=== PATIENT | male | born 1970 ===

== ENCOUNTER 2020-06-10 05:02 | Emergency (ER) | payer OTHER, SELFPAY ==
[2020-06-10 08:37] LABS: Glucose Urine UA NEG (NEG); Leukocyte Esterase Urine NEG (NEG); Nitrite Urine NEG (NEG); PH 5.5 (5.0-8.0); Specific Gravity - Urine >= 1.030 (1.005-1.025); Urine Blood 3+ (NEG); Urine Ketones 5 MG/DL (NEG); Urine Protein NEG (NEG-TRACE)
[2020-06-10 08:43] LABS: Appearance Urine CLOUDY; Color Urine DARK YELLOW
[2020-06-10 08:50] LABS: RBC Urine 50-75 /HPF (0); Squamous Epithelial Cell Urine TRACE /LPF; WBC Urine 0 /HPF (0-4)
[2020-06-10 08:51] LABS: Amorphous Sediment Urine 2+ /LPF; Mucus Urine 2+ /LPF
[2020-06-10 09:27] VITALS: BP 114/69; PULSE 66; RESP 18; TEMP 37.3; O2SAT 98; BMI 21.6
--- NOTE | 2020-06-10 09:35 | CT_ITS ---
EXAMINATION: CT ABDOMEN AND PELVIS WITHOUT CONTRAST CLINICAL INFORMATION: Right flank and abdominal pain COMPARISON: December 25, 2017 TECHNIQUE: Multidetector volumetric imaging was performed from the superior aspect of the liver through the pubic symphysis. Sagittal and coronal reformatted images were obtained on the technologist's workstation. This CT examination was performed using dose optimization techniques as appropriate, variously including the following: *Automated exposure control *Adjustment of mA and/or kV according to patient size (this includes techniques or standardized protocols for targeted exams where dose is matched to indication/reason for exam; i.e. extremities or head) *Use of iterative reconstruction technique DLP: 347.60 mGy-cm FINDINGS: LUNG BASES: The visualized lung bases are unremarkable. No pleural or pericardial effusion. LIVER, GALLBLADDER, AND BILIARY TREE: There is a stable 1.1 cm low-density lesion within the left lobe adjacent to the falciform ligament which may represent small region of focal fatty infiltration or possible cyst. No intrahepatic bile duct dilatation is identified. The gallbladder is unremarkable with no evidence of radiopaque gallstones, gallbladder wall thickening, or obvious pericholecystic inflammatory changes. PANCREAS: Unremarkable. SPLEEN: Unremarkable. ADRENAL GLANDS: Unremarkable. KIDNEYS AND URETERS: There is mild fullness of the right upper collecting system with mild distention of the proximal right ureter down to the level of a 4 mm partially obstructing calculus. No focal renal masses appreciated and no renal calculi are seen. There appears to be a 1 cm upper pole cyst in the right kidney. The left kidney appears unremarkable without calculi or hydronephrosis. Left ureter appears unremarkable. BLADDER: Unremarkable. GASTROINTESTINAL TRACT: No dilated loops of large or small bowel are evident. No free air or free fluid. No evidence of acute diverticulitis. The appendix appears unremarkable. ABDOMINAL WALL: No significant hernia is appreciated. LYMPH NODES: Normal. VASCULAR: Unremarkable. PELVIC VISCERA: Unremarkable. OSSEOUS STRUCTURES: No suspicious destructive bony lesions identified. CT/CT abdomen pelvis wo con IMPRESSION: 4 mm partially obstructing proximal to mid right ureteral calculus without significant hydronephrosis.
--- NOTE | 2020-06-10 09:59 | ED.ABDPAIN ---
HPI - Abdominal Pain General Chief Complaint: Abdominal Pain Stated Complaint: BACK PAIN/?KIDNEY STONES Time Seen by Provider: 06/10/20 09:20 Source: patient Mode of arrival: ambulatory Limitations: no limitations History of Present Illness HPI narrative: 49yoM c PMHx of Kidney stones presenting to the ED c c/o right flank/abd pain since 2 am c dark colored urine. Denies fevers, nausea/vomiting, gross hematuria, dysuria or penile discharge. Patient reports the pain has subsided at this time although he has sharp intermittent pains. Reports he has had surgery in the past for a 5 mm stone although they were unable to find it therefore they believe he passed on his own before the surgery. Patient denies any other symptoms complaints or concerns at this time. Related Data Previous Rx's Medication Instructions Recorded famotidine [Pepcid] 20 mg PO BID #14 tab 06/10/20 ketorolac 10 mg PO TID PRN 5 Days #14 tab 06/10/20 ondansetron HCl [Zofran] 4 mg PO Q8H PRN #14 tab 06/10/20 oxycodone 5 mg PO Q8H PRN #14 tab 06/10/20 Allergies Allergy/AdvReac Type Severity Reaction Status Date / Time No Known Allergies Allergy Verified 06/10/20 09:30 Review of Systems Review of Systems Constitutional : No Fever, No Chills Cardiovascular : No Chest Pain, No SOB Respiratory : No Cough, No Sputum, No Wheezing, No Dyspnea Gastrointestinal : No Nausea, No Vomiting, No Diarrhea, + abdominal Pain, No Hematochezia, No Melena Genitourinary : No irregular bleeding, No Dysuria, No Urinary Frequency, No Hematuria,No Urinary Incontinence, No Urgency, No Flank Pain Musculoskeletal : No Myalgias Skin : No Skin Lesions, No rash Neuro : No Weakness Yes all other systems are reviewed and are negative Physical Exam Vital Signs: Vital Signs: Last Vital Signs Temp 99.2 F 06/10/20 09:27 Pulse 66 06/10/20 09:27 Resp 18 06/10/20 09:27 BP 114/69 06/10/20 09:27 Pulse Ox 98 06/10/20 09:27 Body Mass Index 21.6 vital signs have been reviewed as normal and appeared to be correct. Blood pressure normal. Heart rate normal. Respiration rate normal. Temperature normal. Oxygen saturation normal. Appearance: Alert. Oriented X3. No acute distress. Head: Normal external exam. Normocephalic. Eyes: PERRLA. EOMI. Conjunctiva and sclera normal. Eyelids normal. ENT: Pharynx normal. Uvula midline. Moist mucous membranes. Neck: Normal inspection. Neck supple. FROM. No adenopathy. No meningeal signs. CVS: Normal heart rate and rhythm. Heart sound normal. No murmurs noted. Pulses normal throughout. Respiratory: No respiratory distress. Painless inspiration. Breath sounds normal. No wheezes/rales/rhonchi noted. Chest nontender. No accessory muscle usage noted or decreased air movement noted. Abdomen: Soft and TTP at to r flank. No rigidity. Negative Martinez sign. Bowel sounds normal in all 4 quadrants. No distention noted. No organomegaly noted. No visible injury noted. No rebound tenderness. Negative Rovsing sign. Negative obturator's sign. Negative psoas sign. Back: No CVA tenderness. Full range of motion noted. Skin: Skin warm and dry. Normal skin color. Normal skin turgor. No rashes/lesions/lacerations noted. Extremities: Extremities exhibit normal range of motion. Extremities nontender. Neuro: Oriented X 3. No motor deficit. No sensory deficit. Reflexes normal. Course Course Course Narrative: 9:40am - 49yoM c PMHx of Kidney stones presenting to the ED c c/o right flank/abd pain since 2 am c dark colored urine. - Concern for Kidney stones vs UTI - Plan: labs, UA, CT scan of abd/pelvis without IV contrast then re-evaluate Reevaluation(s) Reevaluation #1: - patient's pain is controlled. Labs are all within normal limits. CT scan showed a 4 mm partially obstructing stone although no hydronephrosis and the patient's kidney function is within normal limits and pain is controlled therefore will DC home with symptomatic treatment along with instructions return if any new or worsening symptom referral to Dr. Atkinson for Urology. Patient understands agrees the plan. Time: 11:01 [facility] - Abdominal Pain Medical Records Attestation: I reviewed the patient's medical records. Lab Data Attestation: I reviewed the patient's lab results. Result diagrams: 06/10/20 09:56 06/10/20 09:56 Labs: Lab Results 06/10/20 06/10/20 06/10/20 Range/Units 08:18 09:56 09:56 WBC 10.4 (4.8-10.8) X10*3/uL RBC 4.98 (4.60-5.80) X10*6/uL Hgb 15.2 (14.0-18.0) g/dl Hct 44.0 (42-52) % MCV 88.4 (80-98) fL MCH 30.5 (27.0-33.0) pg MCHC 34.5 (31.0-36.0) g/dl RDW 12.1 (11.0-16.0) % Plt Count 287 (160-400) X10*3/uL MPV 10.0 (9.4-12.4) fL Immature Gran % (Auto) 0.3 (0.0-0.4) % Neut % (Auto) 87.0 H (45-73) % Lymph % (Auto) 10.0 L (20-40) % [place] % (Auto) 2.4 (2-11) % Eos % (Auto) 0.1 (0-4) % Baso % (Auto) 0.2 (0-2) % Lymph # (Auto) 1.0 L (1.2-4.9) X10*3/uL [place] # (Auto) 0.3 (0.1-1.2) X10*3/uL Eos # (Auto) 0.0 (0.0-0.4) X10*3/uL Baso # (Auto) 0.0 (0.0-0.2) X10*3/uL Abs Immat Gran (auto) 0.03 (0.00-0.03) X10*3/uL Absolute Neuts (auto) 9.0 H (2.0-8.3) X10*3/uL Absolute Nucleated RBC 0.000 (0.0-0.012) X10*3/uL Nucleated RBC % (auto) 0.0 (0.0-0.2) /100WBC Hold Blue Top SEE NOTE Sodium (135-145) mmol/L Potassium (3.3-5.1) mmol/l Chloride (96-108) mmol/L Carbon Dioxide (22-29) mmol/L Anion Gap (12-20) BUN (9-16) mg/dL Creatinine (0.5-1.4) mg/dL Estim Creat Clear Calc Estimated GFR Random Glucose (60-115) mg/dL Calcium (8.4-10.2) mg/dL Magnesium (1.6-2.6) mg/dL Total Bilirubin (0.0-1.0) mg/dL Direct Bilirubin (0.0-0.5) mg/dL AST (5-37) U/L ALT (0-40) U/L Alkaline Phosphatase (39-117) U/L Total Protein (6.5-8.0) g/dL Albumin (3.5-5.0) g/dL Urine Color DARK YELLOW Urine Appearance CLOUDY Urine pH 5.5 (5.0-8.0) Ur Specific [place] >= 1.030 H (1.005-1.025) Urine Protein NEG (NEG-TRACE) MG/DL Urine Glucose (UA) NEG (NEG) MG/DL Urine Ketones 5 (NEG) MG/DL Urine Blood 3+ H (NEG) Urine Nitrite NEG (NEG) Ur Leukocyte Esterase NEG (NEG) Urine RBC 50-75 H (0) /HPF Urine WBC 0 (0-4) /HPF Ur Squamous Epith Cells TRACE /LPF Amorphous Sediment 2+ /LPF Urine Bacteria NONE /LPF Urine Mucus 2+ /LPF 06/10/20 Range/Units 09:56 WBC (4.8-10.8) X10*3/uL RBC (4.60-5.80) X10*6/uL Hgb (14.0-18.0) g/dl Hct (42-52) % MCV (80-98) fL MCH (27.0-33.0) pg MCHC (31.0-36.0) g/dl RDW (11.0-16.0) % Plt Count (160-400) X10*3/uL MPV (9.4-12.4) fL Immature Gran % (Auto) (0.0-0.4) % Neut % (Auto) (45-73) % Lymph % (Auto) (20-40) % [place] % (Auto) (2-11) % Eos % (Auto) (0-4) % Baso % (Auto) (0-2) % Lymph # (Auto) (1.2-4.9) X10*3/uL [place] # (Auto) (0.1-1.2) X10*3/uL Eos # (Auto) (0.0-0.4) X10*3/uL Baso # (Auto) (0.0-0.2) X10*3/uL Abs Immat Gran (auto) (0.00-0.03) X10*3/uL Absolute Neuts (auto) (2.0-8.3) X10*3/uL Absolute Nucleated RBC (0.0-0.012) X10*3/uL Nucleated RBC % (auto) (0.0-0.2) /100WBC Hold Blue Top Sodium 138 (135-145) mmol/L Potassium 4.2 (3.3-5.1) mmol/l Chloride 101 (96-108) mmol/L Carbon Dioxide 26 (22-29) mmol/L Anion Gap 15 (12-20) BUN 12 (9-16) mg/dL Creatinine 0.94 (0.5-1.4) mg/dL Estim Creat Clear Calc 80.1 Estimated GFR > 60 Random Glucose 101 (60-115) mg/dL Calcium 9.1 (8.4-10.2) mg/dL Magnesium 2.1 (1.6-2.6) mg/dL Total Bilirubin 0.5 (0.0-1.0) mg/dL Direct Bilirubin 0.2 (0.0-0.5) mg/dL AST 22 (5-37) U/L ALT 25 (0-40) U/L Alkaline Phosphatase 59 (39-117) U/L Total Protein 7.1 (6.5-8.0) g/dL Albumin 4.4 (3.5-5.0) g/dL Urine Color Urine Appearance Urine pH (5.0-8.0) Ur Specific [place] (1.005-1.025) Urine Protein (NEG-TRACE) MG/DL Urine Glucose (UA) (NEG) MG/DL Urine Ketones (NEG) MG/DL Urine Blood (NEG) Urine Nitrite (NEG) Ur Leukocyte Esterase (NEG) Urine RBC (0) /HPF Urine WBC (0-4) /HPF Ur Squamous Epith Cells /LPF Amorphous Sediment /LPF Urine Bacteria /LPF Urine Mucus /LPF Imaging Data CT scan abdomen and pelvis without contrast: Attestation: I personally reviewed and interpreted this imaging study as follows: Radiologist's impression: CT/CT abdomen pelvis wo con IMPRESSION: 4 mm partially obstructing proximal to mid right ureteral calculus without significant hydronephrosis. Discharge Plan Discharge Clinical Impression: Right nephrolithiasis Patient Disposition: Home, Self-Care Instructions: Kidney Stones (ED) Prescriptions: New oxycodone 5 mg tablet 5 mg PO Q8H PRN (Reason: pain) Qty: 14 RF: 0 ketorolac 10 mg tablet 10 mg PO TID PRN (Reason: pain) 5 Days Qty: 14 RF: 0 ondansetron HCl [Zofran] 4 mg tablet 4 mg PO Q8H PRN (Reason: nausea and vomiting) Qty: 14 RF: 0 famotidine [Pepcid] 20 mg tablet 20 mg PO BID Qty: 14 RF: 0 Referrals: Osorio Grullon PA-C [Primary Care Provider] - 2 days Oh Atkinson III, MD [Physician] - 2 days Oh Atkinson III, MD [Physician] - 2 days Stand Alone Forms: Work/School Release Print Language: Malian [facility] Past Medical History Attestation statement: The following information was validated with the patient. Medical History History of kidney stones Social History Social History Advance Directives: No Advance Directives Information Provided: No
[2020-06-10 10:12] LABS: Basophils Percent Auto 0.2 % (0-2); Eosinophils Percent Auto 0.1 % (0-4); Hemoglobin 15.2 g/dl (14.0-18.0); Imm Gran Abs Auto 0.03 X10*3/uL (0.00-0.03); Imm Gran Pct Auto 0.3 % (0.0-0.4); MANUAL DIFF FLAG NO; Mean Corpuscular HGB Conc 34.5 g/dl (31.0-36.0); Mean Corpuscular Hemoglobin 30.5 pg (27.0-33.0); Mean Corpuscular Volume 88.4 fL (80-98); Monocytes Absolute Auto 0.3 X10*3/uL (0.1-1.2); Monocytes Percent Auto 2.4 % (2-11); Platelet Count 287 X10*3/uL (160-400); Red Blood Count 4.98 X10*6/uL (4.60-5.80); Red Cell Distribution Width 12.1 % (11.0-16.0); White Blood Count 10.4 X10*3/uL (4.8-10.8)
[2020-06-10] MEDS: Ketorolac Tromethamine 15 MG/ML VIAL 30 MG IV (10:12)
[2020-06-10] MEDS: oxyCODONE HCl Immed Release 5 MG TABLET PO (10:12)
[2020-06-10] MEDS: 0.9 % Sodium Chloride 1,000 ML 999 ML IVCONT (10:12)
[2020-06-10 10:44] LABS: Alanine Aminotransferase 25 U/L (0-40); Albumin Level 4.4 g/dL (3.5-5.0); Alkaline Phosphatase 59 U/L (39-117); Anion Gap 15 (12-20); Aspartate Amino Transferase 22 U/L (5-37); Bilirubin Direct 0.2 mg/dL (0.0-0.5); Bilirubin Total 0.5 mg/dL (0.0-1.0); Blood Urea Nitrogen 12 mg/dL (9-16); Calcium 9.1 mg/dL (8.4-10.2); Carbon Dioxide 26 mmol/L (22-29); Chloride 101 mmol/L (96-108); Creatinine Clr Calc Pharmacy 80.1; Estimated Glomerular Filt Rate > 60; Glucose Random 101 mg/dL (60-115); Magnesium 2.1 mg/dL (1.6-2.6); Potassium 4.2 mmol/l (3.3-5.1); Sodium 138 mmol/L (135-145); Total Protein 7.1 g/dL (6.5-8.0)
== END 2020-06-10 11:20 | disposition home or self-care (01) ==
PROVIDERS: Physician Assistant Medical; Emergency Provider Internal Medicine; PCP Physician Assistant
DX: N20.2 Calculus of kidney with calculus of ureter (principal); Z87.442 Personal history of urinary calculi
CPT/HCPCS: 36415; 74176; 80048; 80076; 81001; 83735; 85025; 96361; 96374; 99283; J1885

== ENCOUNTER → 2020-06-16 15:34 | Outpatient (BNVA) | payer OTHER, SELFPAY | PROVIDERS: PCP Physician Assistant; Visit Provider Internal Medicine | DX: Z76.89 Persons encountering health services in other specified circumstances (principal) ==

== ENCOUNTER 2020-06-16 16:01 | Emergency (ER) | payer OTHER, SELFPAY ==
[2020-06-16 16:08] VITALS: BP 155/87; PULSE 74; RESP 18; TEMP 36.6; O2SAT 100; BMI 22.4
--- NOTE | 2020-06-16 16:11 | XR_ITS ---
EXAMINATION: XR SHOULDER, LEFT CLINICAL INFORMATION: Rule out dislocation COMPARISON: None TECHNIQUE: Three views of the left shoulder. FINDINGS: The bones and soft tissues are normal. No fracture. Glenohumeral and acromioclavicular alignment is anatomic with normal joint space. No abnormal soft tissue calcifications. XR/XR shoulder LT min 2V IMPRESSION: Normal left shoulder.
--- NOTE | 2020-06-16 16:12 | ED.UPPEXIN ---
HPI - Extremity Injury (Upper) General Chief Complaint: Extremity Injury, Upper Stated Complaint: shoulder and neck inj Time Seen by Provider: 06/16/20 16:06 Source: patient Mode of arrival: ambulatory Limitations: no limitations History of Present Illness HPI narrative: Patient comes emergency room complaining of left upper extremity pain. 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 Patient complaining of left shoulder pain. Patient states he has chronic pain in his neck, states he was supposed to go for an MRI today for evaluation of a neck injury that occurred in 2018, states that since this incident today, denies neck pain. Patient denies new numbness or tingling, states he has had numbness and tingling in his left palm and digits 3, 4 and 5 since 2018, patient complaining of pain in the left shoulder. MD complaint: injury to: left Onset (ago): hour(s) Related Data Previous Rx's Medication Instructions Recorded famotidine [Pepcid] 20 mg PO BID #14 tab 06/10/20 ketorolac 10 mg PO TID PRN 5 Days #14 tab 06/10/20 ondansetron HCl [Zofran] 4 mg PO Q8H PRN #14 tab 06/10/20 oxycodone 5 mg PO Q8H PRN #14 tab 06/10/20 ketorolac 10 mg PO TID PRN 5 Days #9 tab 06/16/20 Allergies Allergy/AdvReac Type Severity Reaction Status Date / Time No Known Allergies Allergy Verified 06/10/20 09:30 Review of Systems Review of Systems: Constitutional : No Weight loss, No Fever, No Chills, No Night Sweats, No Fatigue, No Malaise ENT/Mouth : No Hearing loss, No Ear Pain, No Nasal Congestion, No Sinus Pain, No Hoarseness, No sore throat, No Rhinorrhea, No Swallowing Difficulty Eyes: No Eye Pain, No Swelling, No Redness, No Foreign Body, No Discharge, No Vision Changes Cardiovascular : No Chest Pain, No SOB, No Dyspnea on Exertion, No Orthopnea, No Edema, No Palpitations Respiratory : No Cough, No Sputum, No Wheezing, No Smoke Exposure, No Dyspnea Gastrointestinal : No Nausea, No Vomiting, No Diarrhea, No Constipation, No abdominal Pain, No Hematochezia, No Melena Genitourinary : no irregular bleeding, No Dysuria, No Urinary Frequency, No Hematuria, No Urinary Incontinence, No Urgency, No Flank Pain, No Urinary Flow Changes, No Hesitancy Musculoskeletal : Patient complaining of left shoulder pain Skin : No Skin Lesions, No rash Neuro : No Weakness, No Numbness, No Paresthesias, No Loss of Consciousness, No Dizziness, No Headache Psych : No Anxiety/Panic, No Depression, No SI/HI/AH/VH, No Social Issues, Heme/Lymph: No Bruising, No Bleeding,No Lymphadenopathy Endocrine : No Polyuria, No Polydipsia, No Temperature Intolerance [facility] Past Medical History Medical History History of kidney stones Social History Social History Advance Directives: No Advance Directives Information Provided: Yes Physical Exam Vital Signs: Vital Signs: Last Vital Signs Temp 97.8 F 06/16/20 16:08 Pulse 74 06/16/20 16:08 Resp 18 06/16/20 16:08 BP 155/87 H 06/16/20 16:08 Pulse Ox 100 06/16/20 16:08 Body Mass Index 22.4 Appearance: Alert. Oriented X3. No acute distress. Eyes: Pupils equal, round and reactive to light. ENT: Pharynx normal. Neck: Normal inspection. Neck supple. No lymph nodes noted. No crepitus. Patient is able to flex and extend his neck, no C-spine tenderness, no palpable step-offs. CVS: Normal heart rate and rhythm. Pulses normal. Normal S1 and S2 Respiratory: No respiratory distress. Breath sounds normal. No Wheezing. No rales Abdomen: Soft and nontender. No rigidity. No distention. good BS x4 Skin: Skin warm and dry. Normal skin color. Normal skin turgor. Extremities: No lower extremity edema. Patient is able to flex and extend wrist and elbow on the left side, patient is unable to abduct the left arm due to pain in the left shoulder. Patient states the pain is worse in the axilla. Able to close and hands all fingers into a fist and oppose thumb.. 5/5 bilateral radial pulses Neuro: Oriented X 3. No motor deficit. No sensory deficit. Moving all extermities. No slurred speech. Course Course Course Narrative: Patient's x-ray is negative for shoulder dislocation/fracture. I discussed with the patient that he needs to follow up with his primary care physician and work connection. Patient is already scheduled for an MRI of his neck, it is likely that he may need an MRI of his shoulder to rule out rotator cuff injury , labral tear, or other ligament injury MDM - Extremity Injury (Upper) Imaging Data Left shoulder x-ray: Radiologist's impression: FINDINGS: The bones and soft tissues are normal. No fracture. Glenohumeral and acromioclavicular alignment is anatomic with normal joint space. No abnormal soft tissue calcifications. XR/XR shoulder LT min 2V IMPRESSION: Normal left shoulder. Discharge Plan Discharge Clinical Impression: Sprain of left shoulder Qualifiers: Encounter type: initial encounter Shoulder sprain type: unspecified sprain Qualified Code(s): S43.402A - Unspecified sprain of left shoulder joint, initial encounter Patient Disposition: Home, Self-Care Instructions: Shoulder Sprain (ED) Additional Instructions: Please follow-up with your primary care physician and with work connections. If you have any worsening pain, any new symptoms, please return to the emergency room or call 911 Prescriptions: New ketorolac 10 mg tablet 10 mg PO TID PRN (Reason: pain) 5 Days Qty: 9 RF: 0 No Action oxycodone 5 mg tablet 5 mg PO Q8H PRN (Reason: pain) Qty: 14 RF: 0 ketorolac 10 mg tablet 10 mg PO TID PRN (Reason: pain) 5 Days Qty: 14 RF: 0 ondansetron HCl [Zofran] 4 mg tablet 4 mg PO Q8H PRN (Reason: nausea and vomiting) Qty: 14 RF: 0 famotidine [Pepcid] 20 mg tablet 20 mg PO BID Qty: 14 RF: 0
[2020-06-16] MEDS: Ketorolac Tromethamine 60 MG/2 ML VIAL IM (16:23)
== END 2020-06-16 18:11 | disposition home or self-care (01) ==
PROVIDERS: Emergency Provider Emergency Medicine; PCP Internal Medicine
DX: S43.402A Unspecified sprain of left shoulder joint, initial encounter (principal); W31.82XA Contact with other commercial machinery, initial encounter; Y93.89 Activity, other specified; Y92.63 Factory as the place of occurrence of the external cause; Y99.0 Civilian activity done for income or pay
CPT/HCPCS: 73030; 96372; 99283; 99284; J1885

== ENCOUNTER → 2020-06-20 13:32 | Outpatient (BNVA) | payer OTHER, SELFPAY | PROVIDERS: Visit Provider Internal Medicine | DX: S46.012A Strain of muscle(s) and tendon(s) of the rotator cuff of left shoulder, initial encounter (principal); X58.XXXA Exposure to other specified factors, initial encounter | CPT/HCPCS: 99202 ==

== ENCOUNTER → 2020-06-22 15:09 | Outpatient (BNVA) | payer OTHER, SELFPAY | PROVIDERS: PCP Physician Assistant; Visit Provider Urology ==

== ENCOUNTER → 2020-06-30 14:19 | Outpatient (BNVA) | payer OTHER, SELFPAY | PROVIDERS: PCP Physician Assistant; Visit Provider Internal Medicine | DX: S60.222A Contusion of left hand, initial encounter (principal); S46.002A Unspecified injury of muscle(s) and tendon(s) of the rotator cuff of left shoulder, initial encounter; X58.XXXA Exposure to other specified factors, initial encounter | CPT/HCPCS: 99213 ==

== ENCOUNTER 2020-12-18 10:00 | Outpatient (REF) | payer OTHER, SELFPAY ==
--- NOTE | ~2020-12-18 | US_ITS ---
EXAMINATION: US RETROPERITONEAL LIMITED (RENAL ONLY) CLINICAL INFORMATION: Personal history of urinary calculi. COMPARISON: CT abdomen and pelvis 06/10/2020. Renal ultrasound 11/05/2017 and 05/06/2017. TECHNIQUE: Real-time imaging of the kidneys. FINDINGS: RIGHT KIDNEY: 9.4 x 4.1 x 4.2 cm (SAG x AP x TRV). The kidney is normal in size, contour, and echogenicity. Renal cortical thickness is normal. No hydronephrosis. There is anechoic cyst in the upper pole measuring 0.7 x 0.8 0.9 cm. There is echogenic stone lower pole measuring 0.4 x 0.3 x 0.4 cm. LEFT KIDNEY: 9.9 x 4.3 x 4.8 cm (SAG x AP x TRV). The kidney is normal in size, contour, and echogenicity. Renal cortical thickness is normal. No hydronephrosis. There is anechoic cyst in the upper pole laterally measuring 1.0 x 0.8 x 0.8 cm with calcification. There is an echogenic stone in lower pole measuring 0.6 x 0.4 x 0.4 cm. US/US renal BI IMPRESSION: Bilateral anechoic cysts and nonobstructive echogenic lower pole stones.
== END 2020-12-18 10:01 | disposition home or self-care (01) ==
LOC: HO.US 10:00
PROVIDERS: Visit Provider Urology
DX: Z87.442 Personal history of urinary calculi (principal)
CPT/HCPCS: 76775

== ENCOUNTER → 2021-04-13 15:25 | Outpatient (BNVA) | payer OTHER, SELFPAY | PROVIDERS: PCP Physician Assistant; Visit Provider Urology ==

== ENCOUNTER 2021-04-21 07:09 | Outpatient (REF) | payer OTHER, SELFPAY ==
[2021-04-21 07:41] LABS: Estimated Average Glucose 120 mg/dL; Hemoglobin A1c % 5.8 %
[2021-04-21 07:58] LABS: Alanine Aminotransferase 22 U/L (0-40); Albumin Level 4.1 g/dL (3.5-5.0); Alkaline Phosphatase 54 U/L (39-117); Anion Gap 12 (12-20); Aspartate Amino Transferase 23 U/L (5-37); Bilirubin Total 0.6 mg/dL (0.0-1.0); Blood Urea Nitrogen 11 mg/dL (9-16); Calcium 9.3 mg/dL (8.4-10.2); Carbon Dioxide 29 mmol/L (22-29); Chloride 103 mmol/L (96-108); Cholesterol 189 mg/dL; Estimated Glomerular Filt Rate > 60; Glucose Fasting 103 mg/dL (60-99); HDL Cholesterol 47 mg/dL; LDL Cholesterol Calculated 105 mg/dl; Potassium 4.6 mmol/L (3.3-5.1); Sodium 139 mmol/L (135-145); Total Protein 6.8 g/dL (6.5-8.0); Triglycerides 189 mg/dL
[2021-04-21 08:25] LABS: Prostate Specific Antigen Scr 12.47 ng/mL (<0.05-4.0); TSH reflex Free T4 0.71 uIU/mL (0.32-4.0)
== END 2021-04-21 07:10 | disposition home or self-care (01) ==
LOC: HO.LAB 07:09
PROVIDERS: PCP Physician Assistant; Visit Provider Physician Assistant
DX: Z13.220 Encounter for screening for lipoid disorders (principal); Z13.1 Encounter for screening for diabetes mellitus; Z12.5 Encounter for screening for malignant neoplasm of prostate; Z13.29 Encounter for screening for other suspected endocrine disorder
CPT/HCPCS: 36415; 80053; 80061; 83036; 84153; 84443

== ENCOUNTER → 2021-04-25 10:32 | Outpatient (BNVA) | payer OTHER, SELFPAY | PROVIDERS: PCP Physician Assistant; Referring Provider Physician Assistant; Visit Provider Nurse Practitioner Family ==

== ENCOUNTER 2021-05-17 17:00 | Outpatient (RCR) | payer OTHER, SELFPAY ==
--- NOTE | 2021-03-28 16:46 | MHC.PT.EP ---
[facility] [place] Office [place] Office [place] Office [address] Zayda Luke [address] [phone] F: [phone] F: [phone] F: [phone] F: [phone] Physical Therapy Plan of Care Date of Evaluation: Date of Surgery: N/A Diagnosis: cervical radiculopathy Assessment: pt's symptoms appear to be related to poor overhead lifting mechanics, postural imbalance of the cervical and shoulder regions, weakness of scapulothroracic musculature, and potential TOS. pt presents to physical therapy with pain, decreased range of motion, decreased strength, impaired functional mobility, impaired postural awareness, and gait deviations. pt is a good candidate for skilled PT due to age, potential remediation of impairments, typical disease/condition progression and prognosis, comorbidities, and motivation. pt would benefit from tailored strengthening and stretching exercise program, functional training, gait training, postural re-training, neuromuscular re-education, modalities as needed for pain, equipment safety demonstration. Frequency and Duration: The patient will be seen 2x/wk for 4 wks Short Term Goals: pt will be I w/ HEP to promote self-management of condition. 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 pt will report a statistically significant improvement in self-reported outcome measure, NDI, to promote return to PLOF. Treatment Plan: Modalities to reduce pain, spasms and effusion. Manual therapy to restore motion and function. Therapeutic exercise to improve strength and flexibility. Neuromuscular re-education for posture and balance. Therapeutic activities to return to functional activities of daily living. Electronically signed by: Charlotte Burgos PT, DPT Please sign and return to therapist. Thank you for your referral.
--- NOTE | 2021-05-17 17:48 | MHC.PT.DC ---
[facility] [place] Office [place] Office [place] Office [address] [phone] F: [phone] F: [phone] F: [phone] F: [phone] Physical Therapy Discharge Report Diagnosis: cervical radiculopathy Date of Surgery: N/A Date of Evaluation: 03/28/21 Date of Discharge: 05/17/21 Treatments to Date: 7 Cancellations to Date: 4 No Shows to Date: 0 Discharge Status: Achieved Goals Improved Function Independent with HEP Discharge Summary: The patient has had nearly complete resolution of symptoms since starting physical therapy. He has improved pain severity and frequency, abolition of radicular sypmtoms, and improved postural awareness. He is independent with his home exercise program. The patient has achieved all goals established at the initial evaluation. He is discharged from this physical therapy plan of care at this time. Electronically signed by: Charlotte Burgos PT, DPT Please sign and return to therapist. Thank you for your referral.
== END 2021-05-17 17:49 | disposition home or self-care (01) ==
LOC: HO.PT 17:00
PROVIDERS: PCP Physician Assistant; Visit Provider Physician Assistant
DX: M54.12 Radiculopathy, cervical region (principal)
CPT/HCPCS: 97012; 97110; 97112; 97162

== ENCOUNTER 2021-09-04 08:56 | Day surgery (SDC) | payer OTHER, SELFPAY ==
[2021-08-30 12:47] VITALS: BMI 22.3
--- NOTE | 2021-09-03 10:18 | HO.ANESPROP2 ---
Documented by User: Rochelle España NP 09/03/21 10:19 HPI - Anesthesia Eval Consult details Narrative: 51yo M for Colonoscopy PMFSH Active Problems Active Problems: All Active Problems (Updated 08/30/21 @ 12:50 by Glenis Neil RN) Annual physical exam (Acute) Cervical radiculitis (Acute) Screening for diabetes mellitus (DM) (Acute) Screening for hypercholesterolemia (Acute) Screening for hypothyroidism (Acute) Colon cancer screening (Acute) MDD (major depressive disorder), recurrent episode, mild (Acute) SANDRA (generalized anxiety disorder) (Acute) Nephrolithiasis (Acute) History of kidney stones (Acute) Past Medical History Medical History COVID-19 vaccine series completed Family history of adverse effect to anesthesia Family history of renal stone History of kidney stones Family History Family History Mother CVA (cerebral vascular accident) Substance use disorder Father CVA (cerebral vascular accident) Sister Diabetes Surgical History Surgical History Hx of cystoscopy Hx of hand surgery Social History Social History Housing: House Alcohol intake: current Alcohol intake frequency: a few times a month Patient Tobacco Use Status: Former Tobacco user Quit Date: teenager Tobacco use type: Cigarette e-Cigarette/Vaping Use: Never Used Second Hand Smoke Exposure: No Use of substances other than those prescribed or required for medical reasons: Yes Substance Use Type: Marijuana Substance Use Frequency: Daily Are you DNR?: No Advance Directives: No Advance Directives Information Provided: Yes (brochure mailed) Advance Directives on File: No Recently lost weight without trying: No Eating poorly because of decreased appetite: No Nutrition Risks: No Nutritional Risk Poor oral hygiene: No service: No Current occupational status: employed Current occupation: [employer] Allergies Allergy/AdvReac Type Severity Reaction Status Date / Time No Known Allergies Allergy Verified 04/25/21 10:59 Home Medications Medication Instructions Recorded Confirmed Last Taken Type citalopram 20 mg tablet 20 mg PO DAILY 06/22/20 08/30/21 Unknown History trazodone 50 mg tablet 50 mg PO BEDTIME PRN 08/30/21 08/30/21 Unknown History Exam Exam Date and Time: September 03, 2021 1018 Height,Weight and Vital Signs: Height 5 ft 5 in Weight 60.781 kg Assessment and Plan Assessment Anesthesia Assessment: Chart Reviewed Documented by User: Fredy Meraz MD 09/04/21 10:24 [facility] [place] Past Medical History Medical History COVID-19 vaccine series completed Family history of adverse effect to anesthesia Family history of renal stone History of kidney stones Family History Family History Mother CVA (cerebral vascular accident) Substance use disorder Father CVA (cerebral vascular accident) Sister Diabetes Family history of problems with anesthesia: No Surgical History Surgical History Hx of cystoscopy Hx of hand surgery History of Problems with Anesthesia: No Social History Social History Housing: House Alcohol intake: current Alcohol intake frequency: a few times a month Patient Tobacco Use Status: Former Tobacco user Quit Date: teenager Tobacco use type: Cigarette e-Cigarette/Vaping Use: Never Used Second Hand Smoke Exposure: No Use of substances other than those prescribed or required for medical reasons: Yes Substance Use Type: Marijuana Substance Use Frequency: Daily Are you DNR?: No Advance Directives: No Advance Directives Information Provided: Yes (brochure mailed) Advance Directives on File: No Recently lost weight without trying: No Eating poorly because of decreased appetite: No Nutrition Risks: No Nutritional Risk Poor oral hygiene: No service: No Current occupational status: employed Current occupation: [employer] Meds Allergies Allergy/AdvReac Type Severity Reaction Status Date / Time No Known Allergies Allergy Verified 04/25/21 10:59 Home Medications Medication Instructions Recorded Confirmed Last Taken Type citalopram 20 mg tablet 20 mg PO DAILY 06/22/20 08/30/21 Unknown History trazodone 50 mg tablet 50 mg PO BEDTIME PRN 08/30/21 08/30/21 Unknown History Exam Airway Mallampati Class: II TM Dist: >3cm Neck ROM: Full Loose/Missing/Broken Teeth: No Assessment and Plan Assessment Anesthesia Assessment: Anesthesia Plan Discussed Final Anesthetic Review Family History of Problems with Anesthesia: No History of Problems with Anesthesia: No NPO: Yes ASA Class: II Final Preanesthetic Review: No Changes in Pt Med Stat, Meds/Allgs Chart Reviewed, Consent Obtained/Reviewed and Anes Risks/Benef Reviewed Patient Risk: Low Procedure Risk: Low Anesthetic Plan Anesthetic Plan: MAC: Disposition: Standard PACU
--- NOTE | 2021-09-04 09:13 | MHC.SHP ---
Pre-Procedural Eval Section A Date of Service: 09/04/21 Section B Chief Complaint: Screening Relevant Family History (Specify if Yes): No Relevant Social History: Other (specify) (THC use) Present Medications: see Short Stay Collaborative assessment Medical History: Significant History (COVID-19 vaccine series completed Family history of adverse effect to anesthesia Family history of renal stone History of kidney stones) History of Previous Operations: Relevant previous surgery/procedure and date(s) (Hx of cystoscopy Hx of hand surgery) Allergies: Allergies Allergy/AdvReac Type Severity Reaction Status Date / Time No Known Allergies Allergy Verified 04/25/21 10:59 Review of Systems Sugical H&P ROS: Negative: Constitution, Cardiovascular, Respiratory, Neurological, Psychiatric, Hem-Onc, Allergic/Immunologic, Gastrointestinal, Genitourinary, Musculoskeletal, Integumentary, Endocrine and Eyes/Ears/Nose/Throat Exam Surgical H&P Exam: Normal: HEENT, Normal: Heart, Normal: Lungs, Normal: Extremities, Normal: Abdomen, Normal: Skin and Normal: Neurological Plan Diagnosis/Plan: Unchanged I have reviewed the history and physical and performed a pertinent physical examination on my patient. No changes have occurred unless specified.
[2021-09-04 09:23] VITALS: BP 129/89; PULSE 72; RESP 18; TEMP 36.1; O2SAT 100
[2021-09-04] MEDS: Lactated Ringers 1,000 ML 100 ML IVCONT (09:28)
--- NOTE | 2021-09-04 09:35 | P.OP_ITS ---
Operative Note Operative Note Date of Service: 09/04/21 Narrative: Operative Information Procedure Description: Colonoscopy Indication: screening colonoscopy Anesthesia: MAC COLONOSCOPY Instrument: Olympus variable stiffness pediatric scope 190L Colonoscopy Monitoring: Vital signs and clinical assessment, continuous EKG monitoring, Pulse oximetry, Carbon Dioxide monitoring and blood pressure monitoring were done throughout the procedure. Colon withdrawal time was 10 minutes. Procedure: The patient was placed in the left lateral decubitis position and pre-procedure medications were administered. After a digital rectal examination of the ano-rectum, the video colonoscope was inserted into the rectum and advanced through the colon to the cecum/TI. The colonoscope was slowly withdrawn in a retrograde panoramic fashion and the colon mucosa was carefully examined including a retroflexed view of the rectum. Findings and interventions are described below. Procedure Difficulty: easy Findings: Terminal Ileum- patchy erythema and inflammation, cold bx taken with forceps Cecum:normal, cold forceps bx taken Ascending Colon: normal, cold forceps bx taken Transverse Colon - 8-9 mm sessile polyp removed with cold snare Descending Colon:normal Sigmoid Colon: normal Rectum: Retroflexion with small internal hemorrhoids, grade I Anorectum - normal Colon preparation: [place] Bowel Preparation Scale Right colon; 3 Transverse colon: 3 Left colon; 3 (0 = Unprepared colon segment with mucosa not seen due to solid stool that cannot be cleared. 1 = Portion of mucosa of the colon segment seen, but other areas of the colon segment not well seen due to staining, residual stool and/or opaque liquid. 2 = Minor amount of residual staining, small fragments of stool and/or opaque liquid, but mucosa of colon segment seen well. 3 = Entire mucosa of colon segment seen well with no residual staining, small fragments of stool or opaque liquid) Impression and Post Procedure Diagnosis: polyp internal hemorrhoids ileitis Plan: High fiber diet leaflet Avoid straining at stool, epsom salts and sitz bath, anusol supps or cream Repeat Colonoscopy in 5-6 years if adenomatous polyp, 10 yrs if hyperplastic or earlier if clinically indicated Above findings were reviewed with the patient and relevant handouts were provided if indicated.
--- NOTE | 2021-09-04 09:35 | P.BOP_ITS ---
Brief Operative Note Date of Service: 09/04/21 Pre-op diagnosis: screening colonoscopy Post-op diagnosis: same Procedure: see op note Surgeon: Anny Fonseca MD Anesthesia: MAC Was an Charge Authorizer used for this Procedure?: No Estimated blood loss (mL): 0 Condition: stable Disposition: PACU
[2021-09-04 10:14] VITALS: BP 95/64; PULSE 67; RESP 16; TEMP 37.2; O2SAT 99
--- NOTE | 2021-09-04 10:27 | PC.NURSE ---
md holley by the bedside speaking to patient.
[2021-09-04 10:29] VITALS: BP 119/71; PULSE 77; TEMP 36.3; O2SAT 98
== END 2021-09-04 10:50 | disposition home or self-care (01) ==
PROVIDERS: PCP Physician Assistant; Visit Provider Internal Medicine Gastroenterology
PROC: 0DJD8ZZ Inspection of Lower Intestinal Tract, Via Natural or Artificial Opening Endoscopic (ICD-10-PCS; CPT 45378; principal; 2021-09-04 10:00)
DX: Z12.11 Encounter for screening for malignant neoplasm of colon (principal); D12.3 Benign neoplasm of transverse colon; K64.0 First degree hemorrhoids; K52.9 Noninfective gastroenteritis and colitis, unspecified; F12.90 Cannabis use, unspecified, uncomplicated; Z79.899 Other long term (current) drug therapy; Z87.442 Personal history of urinary calculi
CPT/HCPCS: 45385; 45380; 88305

== ENCOUNTER → 2021-10-01 10:28 | Outpatient (BNVA) | payer OTHER, SELFPAY | PROVIDERS: PCP Physician Assistant; Referring Provider Physician Assistant; Visit Provider Nurse Practitioner Family | DX: Z13.89 Encounter for screening for other disorder (principal) ==

== ENCOUNTER 2021-10-17 14:21 | Outpatient (REF) | payer OTHER, SELFPAY ==
--- NOTE | ~2021-10-17 | US_ITS ---
EXAMINATION: US RETROPERITONEAL LIMITED (RENAL ONLY) CLINICAL INFORMATION: Calculus of kidney. COMPARISON: Renal ultrasound 12/18/2020 and 11/05/2017. CT abdomen and pelvis 06/10/2020. TECHNIQUE: Real-time imaging of the kidneys. FINDINGS: RIGHT KIDNEY: 9.7 x 4.4 x 5.1 cm (SAG x AP x TRV). The kidney is normal in size, contour, and echogenicity. Renal cortical thickness is normal. No renal calculi or hydronephrosis. There is anechoic cyst upper/mid pole measuring 0.9 x 0.6 0.8 cm. There are multiple punctate calcification seen. LEFT KIDNEY: 9.9 x 4.5 x 4.4 cm (SAG x AP x TRV). The kidney is normal in size, contour, and echogenicity. Renal cortical thickness is normal. No renal calculi or hydronephrosis. There is anechoic cyst upper/midpole measuring 1.1 x 0.6 x 0.9 cm.. There are multiple punctate calcification seen. US/US renal BI IMPRESSION: Bilateral renal cysts. Multiple punctate calcifications visualized. No echogenic stones, caliectasis or hydronephrosis.
== END 2021-10-17 14:22 | disposition home or self-care (01) ==
LOC: HO.US 14:21
PROVIDERS: Visit Provider Urology
DX: N20.0 Calculus of kidney (principal)
CPT/HCPCS: 76775

== ENCOUNTER 2021-11-15 06:05 | Outpatient (REF) | payer OTHER, SELFPAY ==
[2021-11-15 08:04] LABS: PSA,Total (Free>4and<10) 2.76 ng/mL (0.00-4.00)
== END 2021-11-15 06:06 | disposition home or self-care (01) ==
LOC: HO.LAB 06:05
PROVIDERS: PCP Physician Assistant; Visit Provider Urology
DX: R97.20 Elevated prostate specific antigen [PSA] (principal); Z12.5 Encounter for screening for malignant neoplasm of prostate
CPT/HCPCS: 36415; 84153

== ENCOUNTER 2022-06-05 12:00 | Emergency (ER) | payer OTHER, SELFPAY ==
[2022-06-05 12:30] VITALS: BP 138/92; PULSE 91; RESP 18; TEMP 36.8; O2SAT 98; BMI 22.8
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
== END 2022-06-05 12:52 | disposition home or self-care (01) ==
PROVIDERS: Emergency Provider Emergency Medicine Emergency Medical Services; PCP Physician Assistant
DX: Z04.1 Encounter for examination and observation following transport accident (principal); M54.6 Pain in thoracic spine; M54.2 Cervicalgia
CPT/HCPCS: 99282; 99283

== ENCOUNTER 2022-11-04 12:30 | Outpatient (REF) | payer OTHER, SELFPAY ==
--- NOTE | ~2022-11-04 | US_ITS ---
EXAMINATION: US RETROPERITONEAL LIMITED (RENAL ONLY) CLINICAL INFORMATION: Calculus of kidney. COMPARISON: Bilateral renal ultrasound dated 10/17/2021 and 12/18/2020. CT abdomen and pelvis without contrast dated 06/10/2020. TECHNIQUE: Real-time imaging of the kidneys. FINDINGS: RIGHT KIDNEY: 9.6 x 3.9 x 4.8 cm (SAG x AP x TRV). The kidney is normal in size, contour, and echogenicity. Renal cortical thickness is normal. Small cyst in the upper pole measuring 9 x 7 x 10 mm. No imaging follow-up recommended. No renal calculi or hydronephrosis. LEFT KIDNEY: 9.9 x 4.3 x 4.0 cm (SAG x AP x TRV). The kidney is normal in size, contour, and echogenicity. Renal cortical thickness is normal. 2 small cysts measuring 8 x 6 x 8 mm and 7 x 5 x 7 m in the upper pole. No imaging follow-up recommended. No renal calculi or hydronephrosis. US/US renal BI IMPRESSION: No renal stone.
== END 2022-11-04 12:31 | disposition home or self-care (01) ==
LOC: HO.US 12:30
PROVIDERS: PCP Physician Assistant; Visit Provider Urology
DX: N20.0 Calculus of kidney (principal)
CPT/HCPCS: 76775

== ENCOUNTER 2022-11-25 07:19 | Outpatient (REF) | payer OTHER, SELFPAY ==
[2022-11-25 11:47] LABS: Prostate Specific Antigen 2.07 ng/mL (<0.05-4.0)
== END 2022-11-25 07:20 | disposition home or self-care (01) ==
LOC: HO.10HDL 07:19
PROVIDERS: Visit Provider Urology
DX: N40.1 Benign prostatic hyperplasia with lower urinary tract symptoms (principal); N13.8 Other obstructive and reflux uropathy; R97.20 Elevated prostate specific antigen [PSA]; Z12.5 Encounter for screening for malignant neoplasm of prostate
CPT/HCPCS: 36415; 84153

== ENCOUNTER → 2022-11-27 14:25 | Outpatient (BNVA) | payer OTHER, SELFPAY | PROVIDERS: Visit Provider Urology ==

== ENCOUNTER 2023-02-13 07:08 | Outpatient (REF) | payer OTHER, SELFPAY ==
[2023-02-13 10:56] LABS: Hematocrit 46.3 % (42.0-52.0); Hemoglobin 15.6 g/dl (14.0-18.0); Mean Corpuscular HGB Conc 33.7 g/dl (31.0-36.0); Mean Corpuscular Hemoglobin 29.8 pg (27.0-33.0); Mean Corpuscular Volume 88.4 fL (80.0-98.0); Mean Platelet Volume 10.6 fL (9.4-12.4); Platelet Count 283 X10*3/uL (160-400); Red Blood Count 5.24 X10*6/uL (4.60-5.80); Red Cell Distribution Width 12.2 % (11.0-16.0); White Blood Count 8.3 X10*3/uL (4.8-10.8)
[2023-02-13 11:33] LABS: Alanine Aminotransferase 21 U/L (0-40); Albumin Level 4.2 g/dL (3.5-5.0); Alkaline Phosphatase 55 U/L (39-117); Anion Gap 10 (12-20); Aspartate Amino Transferase 26 U/L (5-37); Bilirubin Total 0.5 mg/dL (0.0-1.0); Blood Urea Nitrogen 10 mg/dL (9-16); Calcium 9.6 mg/dL (8.4-10.2); Carbon Dioxide 30 mmol/L (22-29); Chloride 105 mmol/L (96-108); Estimated Glomerular Filt Rate > 60; Glucose Fasting 89 mg/dL (60-99); Iron 86 mcg/dL (45-160); Percent Iron Saturation 30 % (15-50); Potassium 4.1 mmol/L (3.3-5.1); Sodium 141 mmol/L (135-145); Total Iron Binding Capacity 284 mcg/dL (228-428); Total Protein 7.2 g/dL (6.5-8.0); Unsaturated Iron Binding 198 ug/dL
[2023-02-13 11:34] LABS: TSH reflex Free T4 1.22 uIU/mL (0.32-4.0)
== END 2023-02-13 07:09 | disposition home or self-care (01) ==
LOC: HO.10HDL 07:08
PROVIDERS: Visit Provider Physician Assistant
DX: Z13.29 Encounter for screening for other suspected endocrine disorder (principal); Z13.220 Encounter for screening for lipoid disorders; D50.9 Iron deficiency anemia, unspecified; R68.82 Decreased libido; R63.6 Underweight
CPT/HCPCS: 36415; 80053; 83540; 84443; 85027

== ENCOUNTER 2023-02-20 13:18 | Outpatient (AMB) | payer OTHER, SELFPAY ==
[2023-02-20 13:21] VITALS: BP 114/68; PULSE 67; O2SAT 98; BMI 21.1
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
== END 2023-02-20 13:50 | disposition home or self-care (01) ==
PROVIDERS: Visit Provider Physician Assistant
DX: Z00.00 Encounter for general adult medical examination without abnormal findings (principal); R68.82 Decreased libido; F33.0 Major depressive disorder, recurrent, mild; M54.6 Pain in thoracic spine; E78.9 Disorder of lipoprotein metabolism, unspecified; F41.1 Generalized anxiety disorder
CPT/HCPCS: 99396

== ENCOUNTER 2023-11-05 07:51 | Outpatient (REF) | payer OTHER, SELFPAY ==
--- NOTE | ~2023-11-05 | US_ITS ---
EXAMINATION: US RETROPERITONEAL LIMITED (RENAL ONLY) CLINICAL INFORMATION: Calculus of kidney. COMPARISON: Renal ultrasound 11/04/2022 and 10/17/2021. CT abdomen and pelvis 06/10/2020. TECHNIQUE: Real-time imaging of the kidneys. FINDINGS: RIGHT KIDNEY: 8.8 x 3.9 x 5.2 cm (SAG x AP x TRV). The kidney is normal contour and echogenicity. Renal cortical thickness is normal. No renal calculi or hydronephrosis. 0.8 cm simple cyst in the upper pole. No imaging follow-up is recommended. LEFT KIDNEY: 9.5 x 4.1 x 4.6 cm (SAG x AP x TRV). The kidney is contour and echogenicity. Renal cortical thickness is normal. No hydronephrosis. 0.9 cm simple cyst in the mid kidney. 0.8 cm simple cyst in the mid kidney. No imaging follow-up is recommended. 3 mm nonobstructing calculus in the upper kidney. US/US renal BI IMPRESSION: 3 mm nonobstructing calculus in the upper left kidney. This appears new when compared to prior ultrasound and and CT and could be artifactual. No hydronephrosis.
== END 2023-11-05 07:52 | disposition home or self-care (01) ==
LOC: HO.US 07:51
PROVIDERS: PCP Physician Assistant; Visit Provider Urology
DX: N20.0 Calculus of kidney (principal)
CPT/HCPCS: 76775

== ENCOUNTER 2023-11-22 10:30 | Outpatient (REF) | payer OTHER, SELFPAY ==
[2023-11-22 12:35] LABS: Prostate Specific Antigen 2.21 ng/mL (<0.05-4.0)
[2023-11-27 21:09] LABS: Testosterone, Free 55.8 pg/mL (35.0-155.0); Testosterone, Total 413 ng/dL (250-1100)
== END 2023-11-22 10:31 | disposition home or self-care (01) ==
LOC: HO.LAB 10:30
PROVIDERS: PCP Physician Assistant; Referring Provider Urology; Visit Provider Physician Assistant
DX: R97.20 Elevated prostate specific antigen [PSA] (principal); R68.82 Decreased libido; Z12.5 Encounter for screening for malignant neoplasm of prostate
CPT/HCPCS: 36415; 84153; 84402; 84403

== ENCOUNTER 2023-11-26 14:27 | Outpatient (AMB) | payer OTHER, SELFPAY ==
--- NOTE | 2023-11-26 14:29 | A.OFFVIS_ITS ---
Intake Visit Reasons: 1Y Ultrasound/PSA(set) Intake Note: Pt presents to the office today for a 1 year ultrasound/PSA. Urology Meds: None Blood thinner: None Allergies No Known Allergies Allergy (Verified 11/26/23 14:29) HPI Comments Details: Karlos is a pleasant male. He is seen for the following urologic conditions. He is a patient of Dr. Grullon - nephrolithiasis - variable PSA No stones on imaging Small cyst Discussed fluid intake with lemon water PSA high normal for age Continue yearly review Nephrolithiasis Recurrent nephrolithiasis Had been seen early 2020 with stone passage Prior recommendations for increased fluid hydration Imaging - 12/20 renal ultrasound with 4 mm bilateral small stones - 10/21 renal ultrasound bilateral punctate stones, bilateral 1 cm cyst - 11/22 renal ultrasound bilateral renal cyst, no evidence of stones Therapeutic plan - vitamin B6, allopurinol and surveillance imaging Variable PSA PSA - 04/22 12.5, 11/21 2.7, 11/22 2.1, 11/23 2.2 PFSH Medical History Tubular adenoma COVID-19 vaccine series completed Family history of adverse effect to anesthesia Family history of renal stone History of kidney stones Surgical History Hx of colonoscopy Hx of hand surgery Hx of cystoscopy Family History Mother CVA (cerebral vascular accident) Substance use disorder Father CVA (cerebral vascular accident), Onset Age: 60 Sister Diabetes Social History Housing: House Alcohol intake: current Alcohol intake frequency: a few times a month Patient Tobacco Use Status: Former Tobacco user Tobacco use type: Cigarette e-Cigarette/Vaping Use: Never Used Second Hand Smoke Exposure: No Substance Use Type: Marijuana service: No Current occupational status: employed Current occupation: [employer] Cognitive needs: No Hearing needs: No Vision needs: No Review of Systems Const Denies chills and Denies fever(s) Card Reports no additional complaints and Denies syncope Resp Denies cough GI Denies abdominal pain and Denies heartburn Reports as per HPI and Denies change in libido Neuro Denies syncope Psych Denies change in libido Endo Denies change in libido Physical Exam Const General: cooperative, healthy appearing, comfortable and no acute distress Orientation/consciousness: patient oriented x3 HEENT Face and sinus: Yes normal facial exam Mouth: moist mucous membranes Neck Neck: Yes normal visual inspection, Yes full ROM and Yes trachea midline Chest Chest palpation & inspection: normal inspection of the chest Resp Effort & Inspection: normal respiratory effort, able to speak in complete sentences and no respiratory distress GI Inspection: Yes normal to inspection Back/Spine/Pelvis Cervical Spine: normal cervical lordosis Thoracic/Lumbar Spine: thoracic and lumbar spine normal to inspection Skin General skin exam: no rashes or lesions noted Neuro General: patient oriented x3, gait normal, tone normal and moves all extremities Extrem General: Yes normal to inspection and Yes capillary refill normal Assessment & Plan Assessment & Plan (1) Elevated PSA: Code(s): R97.20 - Elevated prostate specific antigen [PSA] Category: Medical (2) Nephrolithiasis: Code(s): N20.0 - Calculus of kidney Category: Medical Plan 12 month follow-up renal ultrasound PSA Orders: Orders US renal BI 12 Months N20.0 - Calculus of kidney Prostate Specific Antigen 364 Days R97.20 - Elevated prostate specific antigen [PSA] Patient Instructions: Imaging studies, laboratory and physical exam results were discussed and reviewed in detail. No major barriers to patient understanding were identified. An opportunity to ask questions regarding the treatment plan was provided. All questions were answered. The patient expressed understanding and agreement with the above treatment plan. The patient is aware they should contact our office by phone for worsening of their current condition or the appearance of new urologic symptoms. Compliance is encouraged with any medications and followup testing that is ordered. It is a privilege to participate in the urologic care of your patient. If you have any questions or concerns regarding treatment for the above conditions, or other urologic issues, please do not hesitate to contact me. The office telephone contact is [phone]. This note is constructed using voice recognition software. While every effort has been made to ensure accuracy lot attendant errors may have been included. Yours sincerely, Dr Alex Porter MD, [facility] - Urology Providers of Expert, Compassionate Care for the Genitourinary System Coding Level of Care Code Est Pt Level 4 (68549) Diagnoses Elevated PSA R97.20 Nephrolithiasis N20.0
== END 2023-11-26 15:12 | disposition home or self-care (01) ==
PROVIDERS: PCP Physician Assistant; Visit Provider Urology
DX: R97.20 Elevated prostate specific antigen [PSA] (principal); N20.0 Calculus of kidney
CPT/HCPCS: 99213

== ENCOUNTER → 2023-11-26 14:27 | Outpatient (BNVA) | payer OTHER, SELFPAY | PROVIDERS: PCP Physician Assistant; Visit Provider Urology ==

== ENCOUNTER 2024-02-14 07:56 | Outpatient (REF) | payer OTHER, SELFPAY ==
[2024-02-14 11:16] LABS: Hematocrit 44.8 % (42.0-52.0); Hemoglobin 15.2 g/dl (14.0-18.0); Mean Corpuscular HGB Conc 33.9 g/dl (31.0-36.0); Mean Corpuscular Hemoglobin 30.5 pg (27.0-33.0); Mean Corpuscular Volume 89.8 fL (80.0-98.0); Platelet Count 290 X10*3/uL (160-400); Red Blood Count 4.99 X10*6/uL (4.60-5.80); Red Cell Distribution Width 12.3 % (11.0-16.0); White Blood Count 6.9 X10*3/uL (4.8-10.8)
[2024-02-14 11:35] LABS: Alanine Aminotransferase 20 U/L (0-40); Albumin Level 4.2 g/dL (3.5-5.0); Alkaline Phosphatase 52 U/L (39-117); Anion Gap 14 (12-20); Aspartate Amino Transferase 23 U/L (5-37); Bilirubin Total 0.5 mg/dL (0.0-1.0); Blood Urea Nitrogen 11 mg/dL (9-16); Calcium 9.7 mg/dL (8.4-10.2); Carbon Dioxide 27 mmol/L (22-29); Chloride 103 mmol/L (96-108); Cholesterol 196 mg/dL (<200); Estimated Glomerular Filt Rate > 60; Glucose Fasting 92 mg/dL (60-99); HDL Cholesterol 56 mg/dL (>40); LDL Cholesterol Calculated 119 mg/dL (<100); Potassium 4.6 mmol/L (3.3-5.1); Sodium 139 mmol/L (135-145); Total Protein 7.2 g/dL (6.5-8.0); Triglycerides 106 mg/dL (<150)
== END 2024-02-14 07:57 | disposition home or self-care (01) ==
LOC: HO.HMGCLDS 07:56
PROVIDERS: PCP Physician Assistant; Visit Provider Physician Assistant
DX: Z13.1 Encounter for screening for diabetes mellitus (principal); E78.9 Disorder of lipoprotein metabolism, unspecified
CPT/HCPCS: 36415; 80053; 80061; 85027

== ENCOUNTER 2024-02-23 13:32 | Outpatient (AMB) | payer OTHER, SELFPAY ==
--- NOTE | 2024-02-23 13:34 | MHC.PC.OV ---
Vital Signs 02/23/24 13:37 Height 5 ft 5 in Weight 132 lb BMI 22.0 BP 118/68 Blood Pressure Location Lt brachial Position Sitting Pulse 60 Pulse Source Pulse Oximeter Pulse Oximetry (%) 97 Oxygen Delivery Method Room Air Intake Visit Reasons: pe Intake Note: Patient is here today for a physical. Biostatistician Required: No Accompanied by: Self / Same As Patient Allergies No Known Allergies Allergy (Verified 02/23/24 13:45) Medication List - Last Reconciled 02/23/24 by Osorio Grullon PA-C acetaminophen (Tylenol Extra Strength) 500 mg PO Q6H PRN citalopram 20 mg PO DAILY Tobacco use date assessed: 02/23/24 Dental Screening Dental Screen Date: 02/23/24 Did you have a dental visit in the last 12 months?: Yes Did you have a dental problem in the last 6 months where you did not have access to dental care?: No Was dental information given to patient?: Patient has dentist HPI pe HPI Details Patient is a 53 year old male here today here today for annual physical.?Patient has a past medical history significant for depression, nephrolithiasis? Chronic neck pain Concerns--> reports having right Achilles tendon pain. He does walk about 6 miles a day have work on concrete floors. Plan: Will try an anti-inflammatory times and try stretching the Achilles tendon more regularly. ?.. ?Depession: Is followed by a? therapist psychiatrist ( Aylin Tamez ) continues on SSRI therapy with good effect on his depression. His Celexa was recently increased to 20 mg ?.. ?Vaccine: UTD with? Tdap. UTD with COVID vac, he will consider getting flu vac and shingles vaccine. . Colorectal cancer screening: Colonoscopy done in 2021, poly found found repeat 5 years. Laboratory Tests 04/21/21 11/15/21 02/13/23 07:14 06:11 07:00 RBC 5.24 Creatinine 0.93 Fasting Glucose 103 H Hemoglobin A1c % 5.8 Cholesterol PSA Screen 12.47 H Total PSA 2.76 Prostate Specific Ag TSH 0.71 Total Testosterone 11/22/23 02/14/24 10:46 08:09 RBC Creatinine 0.92 Fasting Glucose 92 Hemoglobin A1c % Cholesterol 196 PSA Screen Total PSA Prostate Specific Ag 2.21 TSH Total Testosterone 413 PFSH Medical History Tubular adenoma COVID-19 vaccine series completed Family history of adverse effect to anesthesia Family history of renal stone History of kidney stones Surgical History Hx of colonoscopy Hx of hand surgery Hx of cystoscopy Family History Mother CVA (cerebral vascular accident) Substance use disorder Father CVA (cerebral vascular accident), Onset Age: 60 Sister Diabetes Social History (Updated 02/23/24 @ 13:49 by Osorio Grullon PA-C) Housing: House Alcohol intake: former Year quit: 2018 Patient Tobacco Use Status: Former Tobacco user Tobacco use type: Cigarette e-Cigarette/Vaping Use: Never Used Second Hand Smoke Exposure: No Substance Use Type: Marijuana service: No Current occupational status: employed Current occupation: [email or web address] Cognitive needs: No Hearing needs: No Vision needs: No Questionnaire PHQ-9 Over the last 2 weeks, how often have you been bothered by any of the following problems? 1. Little interest or pleasure in doing things: several days 2. Feeling down, depressed, or hopeless: nearly every day 3. Trouble falling or staying asleep, or sleeping too much: nearly every day 4. Feeling tired or having little energy: nearly every day 5. Poor appetite or overeating: not at all 6. Feeling bad about yourself - or that you are a failure or have let yourself or your family down: not at all 7. Trouble concentrating on things, such as reading the newspaper or watching television: not at all 8. Moving or speaking so slowly that other people could have noticed. Or the opposite - being so fidgety or restless that you have been moving around a lot more than usual: nearly every day 9. Thoughts that you would be better off or of hurting yourself in some way: several days Total score: 14 Depression Screening Interpretation: Positive Depression Screening Follow-up: Existing condition and In treatment Depression Screening Done: Yes 73367 - PHQ-9 Billing: Yes Source: Developed by Drs. Leonid Schwab, Lillian Rodas, Aries Atkinson and colleagues, with an educational eber from [employer]. Thrive Questionnaire Date Thrive assessed: 02/23/24 I am a: Patient What is your living situation today?: I have a steady place to live Within the past 12 months, did the food you bought not last and you didn't have the money to get more?: I choose not to answer this question Within the past 12 months, did you worry whether your food would run out before you got money to buy more?: I choose not to answer this question Do you have trouble paying for medicines?: I choose not to answer this question Do you have trouble getting transportation to medical appointments?: I choose not to answer this question Do you have trouble paying your heating and electricity bill?: I choose not to answer this question Do you have trouble taking care of your child, family member or friend?: I choose not to answer this question Do you have trouble with day-to-day activities such as bathing, preparing meals, shopping, managing finances, etc.?: I choose not to answer this question Are you currently unemployed and looking for a job?: No Are you interested in more education?: Yes Please select the resources that you would like help with: None Currently or been in a relationship where the following occur: Controlled Emotionally and No concerns reported THRIVE Score: 1 AUDIT C Alcohol Use Questionnaire (AUDIT-C) 1. How often do you have a drink containing alcohol?: Monthly or less 2. How many drinks containing alcohol do you have on a typical day when you are drinking?: 1 or 2 3. How often do you have six or more drinks on one occasion?: Never Total Score: 1 SANDRA-7 AMB Questionnaire SANDRA-7 Date SANDRA - 7 assessed: 02/23/24 Feeling nervous, anxious, or on edge: 3 = Nearly every day Not being able to stop or control worryin = Nearly every day Worrying too much about different things: 3 = Nearly every day Trouble relaxin = Nearly every day Being so restless that it is hard to sit still: 3 = Nearly every day Becoming easily annoyed or irritable: 3 = Nearly every day Feeling afraid as if something awful might happen: 3 = Nearly every day Total SANDRA-7 score (0-4 normal; 5-9 mild; 10-14 moderate; 15-21 severe): 21 Source: Developed by Drs. Leonid Schwab, Lillian Rodas, Aries Atkinson and colleagues, with an educational eber from [employer]. SANDRA-7 Assessment Billing SANDRA-7 Assessment Tool: SANDRA-7 Assessment 82600 Review of Systems Const Denies body aches, Denies chills, Denies excessive sweating, Denies fatigue, Denies fever(s) and Denies headache(s) Eyes Denies blurry vision ENT Denies dysphagia, Denies vertigo, Denies dizziness, Denies headache(s), Denies hearing loss and Denies tinnitus Card Denies chest pain, Denies chest pain with activity, Denies syncope, Denies irregular heart rhythm and Denies dyspnea Resp Denies chest congestion, Denies cough, Denies hemoptysis, Denies dyspnea and Denies wheezing GI Denies abdominal pain, Denies melena, Denies hematochezia, Denies coffee ground emesis, Denies dysphagia, Denies diarrhea, Denies nausea and Denies vomiting Denies difficulty urinating, Denies dysuria, Denies urinary frequency, Denies urinary hesitancy and Denies urinary urgency Musc Denies arthralgias, Denies limited range of motion, Denies muscle cramps and Denies muscle weakness Skin/Breast Denies rash and Denies skin ulcer Neuro Denies Abnormal speech present, Denies confusion, Denies vertigo, Denies dizziness, Denies syncope, Denies headache(s), Denies memory loss and Denies seizure-like activity Psych Denies anxiety, Denies confusion, Denies depression, Denies memory loss, Denies panic attacks and Denies paranoia Endo Denies excessive sweating, Denies fatigue, Denies flushing, Denies polydipsia and Denies polyuria Aller/Immun Denies wheezing Physical exam (Primary Care) Vital Signs: Last Vital Signs Pulse 60 02/23/24 13:37 BP 118/68 02/23/24 13:37 Pulse Ox 97 02/23/24 13:37 Oxygen Delivery Method Room Air 02/23/24 13:37 BMI result Body Mass Index 22.0 Tobacco/Smoking Status: Tobacco use Status Tobacco use date assessed 02/23/24 02/23/24 13:41 Patient Tobacco Use Status Former Tobacco user 02/23/24 13:49 Tobacco use type Cigarette 02/23/24 13:49 e-Cigarette/Vaping Use Never Used 02/23/24 13:49 PHQ-9: PHQ-9 Score PHQ-9: Total score 14 02/23/24 13:48 Depression Screening Interpretation: Positive Depression Screening Follow-up: Existing condition and In treatment Thrive Assessment: Date of Thrive Assessment Date Thrive assessed 02/23/24 02/23/24 13:35 Currently or been in a relationship where the following occur: Controlled Emotionally and No concerns reported Const General: cooperative, comfortable, no acute distress, alert and awake; No confusion Orientation/consciousness: oriented to person, oriented to place, patient oriented x3 and No confusion HENMT Head: Yes normocephalic Ears: external ears normal and TM's normal bilaterally Face and sinus: No sinus tenderness Mouth: Normal oral and palatal mucosa present and tongue normal Teeth and gingiva: dentition normal and gingiva normal Throat: Yes posterior oropharynx normal, Yes tonsils normal and Yes uvula midline Eyes Conjunctivae: conjunctivae normal Sclerae: sclerae normal Pupils: Equal, round and reactive pupils present EOM: EOMs intact bilaterally Direct Ophthalmoscopy: No no photophobia Neck Neck: Yes no lymphadenopathy, No tender and Yes no JVD Thyroid: Thyroid normal Carotids: no bruits Chest Chest palpation & inspection: no tenderness Resp Effort & Inspection: normal respiratory effort, no audible wheezes, not labored and no stridor Auscultation: no crackles, no rales, no rhonchi and no wheezes Cardio Jugular venous distension: no JVD Rate: regular rate, not bradycardic and not tachycardic Rhythm: regular rhythm Bruits: no carotid bruits Peripheral pulses: Peripheral pulses 2+ throughout GI Inspection: Yes normal to inspection, No abdominal wall ecchymosis and No visible herniation Palpation (GI): Soft to palpation, nontender, no guarding, not rigid and No hepatosplenomegaly present Auscultation: normoactive bowel sounds General: Yes no CVA tenderness Back/Spine/Pelvis Back: no CVA tenderness and No back tenderness Cervical Spine: cervical ROM normal Thoracic/Lumbar Spine: thoracic and lumbar spine normal to inspection, straight leg raise negative bilaterally, No thoraco-lumbar ROM limited and No lumbar spinal tenderness Skin Lesions: no lesions Rashes: no rashes Wounds: no wounds Neuro General: oriented to person, oriented to place, patient oriented x3, CN's II-XI intact bilaterally and No confusion Cranial nerves: Yes Equal, round and reactive pupils present and Yes Normal accommodation reflex present Cognition (Neuro): normal cognition Speech: No Abnormal speech present Gait exam (Neuro): Normal gait present Motor exam (neuro): 5/5 motor strength present throughout Extrem Right upper extremity: full ROM; no cyanosis Left upper extremity: full ROM; no cyanosis Right lower extremity: no edema Left lower extremity: no edema Psych Appearance: grossly normal Mental Status: mental status grossly normal Affect: normal affect Attitude: cooperative Thought process: Normal thought process present Assessment and Plan Assessment & Plan (1) Annual physical exam: Code(s): Z00.00 - Encounter for general adult medical examination without abnormal findings (2) Borderline high cholesterol: Code(s): E78.9 - Disorder of lipoprotein metabolism, unspecified Plan: Has a history of borderline high total cholesterol. Recent fasting lipid panel showing excellent control of his total cholesterol and LDL. Will continue to work on lifestyle and dietary modifications (3) SANDRA (generalized anxiety disorder): Code(s): F41.1 - Generalized anxiety disorder Plan: Patient's SANDRA-7 score positive for moderate anxiety which has been existing condition for him. Karlos continues to speak with a psychiatrist who manages his mental health medication. His Celexa was recently increased to 20 mg. (4) MDD (major depressive disorder), recurrent episode, mild: Code(s): F33.0 - Major depressive disorder, recurrent, mild Plan: Patient's PHQ-9 score positive for depression which has been existing condition for him. Again speaks with a psychiatrist who manages his mental health medication. As above patient continues to follow psychiatry and continues on SSRI therapy. Patient Instructions: Goal: Total cholesterol to remain below 200 Barrier: Adherence to physical activity and healthy eating habits Coding Level of Care Code Est Pt Prev Care 40-64y(82328) Diagnoses Annual physical exam Z00.00 Borderline high cholesterol E78.9 SANDRA (generalized anxiety disorder) F41.1 MDD (major depressive disorder), recurrent episode, mild F33.0 Additional Codes SANDRA-7 Assessment Billing - SANDRA-7 Assessment Tool: SANDRA-7 Assessment 80121 ([id number])
[2024-02-23 13:37] VITALS: BP 118/68; PULSE 60; O2SAT 97; BMI 22.0
== END 2024-02-23 14:00 | disposition home or self-care (01) ==
PROVIDERS: PCP Physician Assistant; Visit Provider Physician Assistant
DX: Z00.00 Encounter for general adult medical examination without abnormal findings (principal); E78.9 Disorder of lipoprotein metabolism, unspecified; F41.1 Generalized anxiety disorder; F33.0 Major depressive disorder, recurrent, mild

== ENCOUNTER → 2024-02-23 13:32 | Outpatient (BNVA) | payer OTHER, SELFPAY | PROVIDERS: PCP Physician Assistant; Visit Provider Physician Assistant | DX: Z00.00 Encounter for general adult medical examination without abnormal findings (principal); E78.9 Disorder of lipoprotein metabolism, unspecified; F41.1 Generalized anxiety disorder; F33.0 Major depressive disorder, recurrent, mild | CPT/HCPCS: 96127 ==

== ENCOUNTER → 2024-05-12 11:02 | Outpatient (BNVA) | payer OTHER, SELFPAY | PROVIDERS: PCP Physician Assistant; Visit Provider Physician Assistant | DX: S61.311A Laceration without foreign body of left index finger with damage to nail, initial encounter (principal); W26.8XXA Contact with other sharp object(s), not elsewhere classified, initial encounter | CPT/HCPCS: 99202 ==

== ENCOUNTER → 2024-05-14 13:31 | Outpatient (BNVA) | payer OTHER, SELFPAY | PROVIDERS: PCP Physician Assistant; Visit Provider Physician Assistant | DX: S61.311A Laceration without foreign body of left index finger with damage to nail, initial encounter (principal); W26.8XXA Contact with other sharp object(s), not elsewhere classified, initial encounter | CPT/HCPCS: 99213 ==

== ENCOUNTER → 2024-06-22 12:14 | Outpatient (BNVA) | payer OTHER, SELFPAY | PROVIDERS: PCP Physician Assistant; Visit Provider Physician Assistant Medical | DX: S61.012A Laceration without foreign body of left thumb without damage to nail, initial encounter (principal); W26.8XXA Contact with other sharp object(s), not elsewhere classified, initial encounter | CPT/HCPCS: 12001; 99204 ==

== ENCOUNTER → 2024-06-24 09:51 | Outpatient (BNVA) | payer OTHER, SELFPAY | PROVIDERS: PCP Physician Assistant; Visit Provider Physician Assistant | DX: S61.012A Laceration without foreign body of left thumb without damage to nail, initial encounter (principal); W26.8XXA Contact with other sharp object(s), not elsewhere classified, initial encounter | CPT/HCPCS: 99213 ==

== ENCOUNTER → 2024-06-29 09:55 | Outpatient (BNVA) | payer OTHER, SELFPAY | PROVIDERS: PCP Physician Assistant; Visit Provider Registered Nurse | DX: S61.012A Laceration without foreign body of left thumb without damage to nail, initial encounter (principal); W26.8XXA Contact with other sharp object(s), not elsewhere classified, initial encounter; Z02.79 Encounter for issue of other medical certificate | CPT/HCPCS: 99212; 99213 ==

== ENCOUNTER 2024-11-09 10:55 | Outpatient (REF) | payer OTHER, SELFPAY ==
--- NOTE | ~2024-11-09 | US_ITS ---
CLINICAL HISTORY: N20.0 - Calculus of kidney US Renal Comparison: None Findings: Right kidney normal size and echotexture, 9.7 cm length. Scattered small echogenic foci are present. There is a cluster of calculi within the right kidney spanning 5 mm. Left kidney normal size and echotexture, 9.8 cm length. Scattered echogenic foci within the left kidney. There is a mass within the left superior pole kidney laterally measuring 9 mm. No collecting system dilatation of either kidney. Normal color Doppler. IMPRESSION: 1. Nonobstructing bilateral renal calculi. 2. Left superior pole renal mass. Further assessment with renal protocol CT is recommended. This document has been electronically signed by: Maye Carpio MD on 11/09/2024 15:54:57
== END 2024-11-09 10:56 | disposition home or self-care (01) ==
LOC: HO.US 10:55
PROVIDERS: PCP Physician Assistant; Visit Provider Urology
DX: N20.0 Calculus of kidney (principal)
CPT/HCPCS: 76775

== ENCOUNTER → 2024-11-09 10:56 | Outpatient (BNV) | payer OTHER, SELFPAY | PROVIDERS: PCP Physician Assistant; Visit Provider Radiology Diagnostic Radiology | DX: N20.0 Calculus of kidney (principal); N28.89 Other specified disorders of kidney and ureter | CPT/HCPCS: 76775 ==

== ENCOUNTER 2024-11-23 11:26 | Outpatient (AMB) | payer OTHER, SELFPAY ==
--- NOTE | 2024-11-23 11:53 | A.OFFVIS_ITS ---
Intake Visit Reasons: 1YR/PSA/Us(psa?) Intake Note: Pt presents to the office today for a 1 year ultrasound psa ( not done ) Urology Meds: None Blood thinner: None Cargo Operations Agent Required: No Accompanied by: Self / Same As Patient Allergies No Known Allergies Allergy (Verified 11/23/24 11:56) HPI Comments Details: Karlos is a pleasant male. He is seen for the following urologic conditions. He is a patient of Dr. Grullon - nephrolithiasis - variable PSA Renal ultrasound recommend CT scan Discussed ultrasound findings Nephrolithiasis Recurrent nephrolithiasis Had been seen early 2020 with stone passage Prior recommendations for increased fluid hydration Imaging - 12/20 renal ultrasound with 4 mm bilateral small stones - 10/21 renal ultrasound bilateral punctate stones, bilateral 1 cm cyst - 11/22 renal ultrasound bilateral renal cyst, no evidence of stones - 11/24 renal ultrasound bilateral cysts with small stones recommend CT Therapeutic plan - vitamin B6, allopurinol and surveillance imaging Variable PSA PSA - 04/22 12.5, 11/21 2.7, 11/22 2.1, 11/23 2.2 PFSH Medical History Tubular adenoma COVID-19 vaccine series completed Family history of adverse effect to anesthesia Family history of renal stone History of kidney stones Surgical History Hx of colonoscopy Hx of hand surgery Hx of cystoscopy Family History Mother CVA (cerebral vascular accident) Substance use disorder Father CVA (cerebral vascular accident), Onset Age: 60 Sister Diabetes Social History (Updated 02/23/24 @ 13:49 by Osorio Grullon PA-C) Housing: House Alcohol intake: former Year quit: 2018 Patient Tobacco Use Status: Former Tobacco user Tobacco use type: Cigarette e-Cigarette/Vaping Use: Never Used Second Hand Smoke Exposure: No Substance Use Type: Marijuana service: No Current occupational status: employed Current occupation: [employer] Cognitive needs: No Hearing needs: No Vision needs: No Review of Systems Const Denies chills and Denies fever(s) Card Reports no additional complaints and Denies syncope Resp Denies cough GI Denies abdominal pain and Denies heartburn Reports as per HPI and Denies change in libido Neuro Denies syncope Psych Denies change in libido Endo Denies change in libido Physical Exam Const General: cooperative, healthy appearing, comfortable and no acute distress Orientation/consciousness: patient oriented x3 HEENT Face and sinus: Yes normal facial exam Mouth: moist mucous membranes Neck Neck: Yes normal visual inspection, Yes full ROM and Yes trachea midline Chest Chest palpation & inspection: normal inspection of the chest Resp Effort & Inspection: normal respiratory effort, able to speak in complete sentences and no respiratory distress GI Inspection: Yes normal to inspection Back/Spine/Pelvis Cervical Spine: normal cervical lordosis Thoracic/Lumbar Spine: thoracic and lumbar spine normal to inspection Skin General skin exam: no rashes or lesions noted Neuro General: patient oriented x3, gait normal, tone normal and moves all extremities Extrem General: Yes normal to inspection and Yes capillary refill normal Results AMB Urinalysis, Automated UA Leukoctes 0 Trena/uL Last Edit by Rachael Hart MA on 11/23/24 12:16 UA Nitrite Negative Last Edit by Rachael Hart MA on 11/23/24 12:16 UA Urobilinogen 3.5 mg/dL Last Edit by Rachael Hart MA on 11/23/24 12:16 UA Protein 0 mg/dL Last Edit by Rachael Hart MA on 11/23/24 12:16 UA pH 5.5 Last Edit by Rachael Hart MA on 11/23/24 12:16 UA Blood 0 Fletcher/uL Last Edit by Rachael Hart MA on 11/23/24 12:16 UA Specific [place] 1.025 Last Edit by Rachael Hart MA on 11/23/24 12:16 UA Ketone Negative Last Edit by Rachael Hart MA on 11/23/24 12:16 UA Bilirubin 0 mg/dL Last Edit by Rachael Hart MA on 11/23/24 12:16 UA Glucose 0 mg/dL Last Edit by Rachael Hart MA on 11/23/24 12:16 Assessment & Plan Assessment & Plan (1) Complex renal cyst: Code(s): N28.1 - Cyst of kidney, acquired Category: Medical Plan Imaging with contrast Orders: Orders AMB Urinalysis Automated Today Z13.9 - Encounter for screening, unspecified CT abdomen wo/w IV con Today N28.1 - Cyst of kidney, acquired Patient Instructions: This note is constructed using voice recognition software. While every effort has been made to ensure accuracy student accounts manager errors may have been included. Imaging studies, laboratory and physical exam results were discussed and reviewed in detail. No major barriers to patient understanding were identified. An opportunity to ask questions regarding the treatment plan was provided. All questions were answered. The patient expressed understanding and agreement with the above treatment plan. The patient is aware they should contact our office by phone for worsening of their current condition or the appearance of new urologic symptoms. Compliance is encouraged with any medications and followup testing that is ordered. It is a privilege to participate in the urologic care of your patient. If you have any questions or concerns regarding treatment for the above conditions, or other urologic issues, please do not hesitate to contact me. The office telephone contact is [phone]. Sincerely, Dr Alex Porter MD, [facility] - Urology Compassionate Specialist Care for the Genitourinary System Coding Level of Care Code Est Pt Level 4 (76502) Complex EM visit Add On G2211 Diagnoses Complex renal cyst N28.1
== END 2024-11-23 12:18 | disposition home or self-care (01) ==
LOC: HO.HUSH 11:27
PROVIDERS: PCP Physician Assistant; Visit Provider Urology
DX: Z13.9 Encounter for screening, unspecified (principal); N28.1 Cyst of kidney, acquired
CPT/HCPCS: 99214; G2211

== ENCOUNTER → 2024-11-23 11:26 | Outpatient (BNVA) | payer OTHER, SELFPAY | PROVIDERS: PCP Physician Assistant; Visit Provider Urology | DX: N28.1 Cyst of kidney, acquired (principal) | CPT/HCPCS: 81003 ==

== ENCOUNTER 2024-12-22 13:51 | Outpatient (REF) | payer OTHER, SELFPAY ==
--- NOTE | ~2024-12-22 | CT_ITS ---
EXAMINATION: CT ABDOMEN WITHOUT AND WITH CONTRAST CLINICAL INFORMATION: Cyst both kidneys, acquired. Mass in the upper pole left kidney.. COMPARISON: June 10, 2020. Correlated to ultrasound kidneys dated November 09, 2024. TECHNIQUE: Contiguous axial thin section helical images of the abdomen were performed before and after the administration of 85 mL of Omnipaque 350 intravenous contrast. The data set was reformatted in the coronal and sagittal planes and reviewed on an independent workstation. This CT examination was performed using dose optimization techniques as appropriate, variously including the following: *Automated exposure control *Adjustment of mA and/or kV according to patient size (this includes techniques or standardized protocols for targeted exams where dose is matched to indication/reason for exam; i.e. extremities or head) *Use of iterative reconstruction technique DLP: 287 mGy centimeter. FINDINGS: LUNG BASES: No acute airspace disease. No gross pulmonary nodules. LIVER, GALLBLADDER, AND BILIARY TREE: Liver measures 14 cm. There are a few, 4 mm and 15 mm hypodensities. No focal mass. Portal veins, hepatic veins and intrahepatic portion of the IVC are patent. No intrahepatic biliary ductal dilatation. Gallbladder is contracted. No pericholecystic fluid collection or gallbladder wall thickening. Common bile duct measures 3 mm.. PANCREAS: No focal mass. No peripancreatic fluid collections. No main pancreatic ductal dilatation. SPLEEN: 8 cm. No focal lesion. ADRENAL GLANDS AND KIDNEYS: No nodular lesions either adrenal gland. Right kidney: No hydronephrosis. No nephrolithiasis. No enhancing renal mass. Normal enhancement pattern of the renal parenchyma. Multiple, less than 10 mm fluid density lesions throughout the corticomedullary junction. Left kidney: No hydronephrosis. No nephrolithiasis. No enhancing mass. There are few scattered less than 10 mm nonenhancing fluid density lesions, the most conspicuous in the upper pole. BOWEL LOOPS: No intestinal obstruction pattern. No intestinal wall thickening. Gas and fluid-filled prominent small bowel loops. Stool within the right hemicolon. Appendix is normal in a retrocecal location. No ascites. No pneumatosis intestinalis. No pneumoperitoneum. No peripheral enhancing fluid collections in the peritoneal cavity of the abdomen. LYMPH NODES: Nonspecific mildly prominent mesenteric and retroperitoneum. VASCULAR: Mixed plaques in the distal abdominal aorta wall and iliac arteries. No aneurysm or dissection abdominal aorta. BONES: Mild lower thoracic spondylosis. No acute fracture or listhesis. No lytic or blastic lesions. CT/CT abdomen wo/w IV con IMPRESSION: Bosniak type I and type II cysts, bilaterally. Probable hepatic cysts. Consider mild enteritis in the correct clinical settings. Fleischner guidelines were followed. Electronically signed by: Juan Carlos Aquino MD 12/22/2024 02:52 PM EDT
[2024-12-22] MEDS: iohexoL 350 MG/ML 100 ML INFUS..BTL IV (14:35)
[2024-12-22 14:53] LABS: Creatinine POC 0.9 mg/dL (0.5-1.4); GFR POC > 60
== END 2024-12-22 13:52 | disposition home or self-care (01) ==
LOC: HO.CT 13:51
PROVIDERS: PCP Physician Assistant; Visit Provider Urology
DX: N28.1 Cyst of kidney, acquired (principal)
CPT/HCPCS: 74170; 82565; Q9967

== ENCOUNTER → 2024-12-22 13:52 | Outpatient (BNV) | payer OTHER, SELFPAY | PROVIDERS: PCP Physician Assistant; Visit Provider Radiology Diagnostic Radiology | DX: N28.1 Cyst of kidney, acquired (principal) | CPT/HCPCS: 74170 ==

== ENCOUNTER 2025-01-18 13:57 | Outpatient (AMB) | payer OTHER, SELFPAY ==
--- NOTE | 2025-01-18 13:57 | A.OFFVIS_ITS ---
Intake Visit Reasons: 2M Renal Scan Follow Up Intake Note: Pt presents to the office today for a TELEHEALTH Urology Meds: None Blood thinner: None Imaging done: CT scan done 12/22/2024 Community Engagement Coordinator Required: No Accompanied by: Self / Same As Patient Allergies No Known Allergies Allergy (Verified 01/18/25 13:58) HPI Comments Details: Karlos is a pleasant male. He is seen for the following urologic conditions. He is a patient of Dr. Grullon - nephrolithiasis - variable PSA Telemedicine Evaluation 15 min Consultation Doximity Sneha Video CT scan minimal issues with kidney cysts Follow-up not recommended for cysts We will continue to follow renal ultrasound Nephrolithiasis Recurrent nephrolithiasis Had been seen early 2020 with stone passage Prior recommendations for increased fluid hydration Imaging - 12/20 renal ultrasound with 4 mm bilateral small stones - 10/21 renal ultrasound bilateral punctate stones, bilateral 1 cm cyst - 11/22 renal ultrasound bilateral renal cyst, no evidence of stones - 11/24 renal ultrasound bilateral cysts with small stones recommend CT - CT showed simple cysts Therapeutic plan - vitamin B6, allopurinol and surveillance imaging Variable PSA PSA - 04/22 12.5, 11/21 2.7, 11/22 2.1, 11/23 2.2 PFSH Medical History Tubular adenoma COVID-19 vaccine series completed Family history of adverse effect to anesthesia Family history of renal stone History of kidney stones Surgical History Hx of colonoscopy Hx of hand surgery Hx of cystoscopy Family History Mother CVA (cerebral vascular accident) Substance use disorder Father CVA (cerebral vascular accident), Onset Age: 60 Sister Diabetes Social History (Updated 02/23/24 @ 13:49 by Osorio Grullon PA-C) Housing: House Alcohol intake: former Year quit: 2018 Patient Tobacco Use Status: Former Tobacco user Tobacco use type: Cigarette e-Cigarette/Vaping Use: Never Used Second Hand Smoke Exposure: No Substance Use Type: Marijuana service: No Current occupational status: employed Current occupation: [employer] Cognitive needs: No Hearing needs: No Vision needs: No Review of Systems Const All systems reviewed & are unremarkable except as noted in HPI and below Reports no additional complaints Resp Reports no additional complaints GI Reports no additional complaints Reports as per HPI Musc Reports no additional complaints Physical Exam Telemedicine evaluation Appropriate responses Regular breathing rate and rhythm HEENT Head: Yes normal to inspection Ears: hearing grossly normal bilaterally Eyes General: appearance normal, both eyes and all related structures Neck Neck: Yes normal visual inspection Chest Chest palpation & inspection: normal inspection of the chest Resp Effort & Inspection: normal respiratory effort and able to speak in complete sentences Telehealth Telehealth Telehealth Platform: [employer] Location of provider rendering services: practice address Location of patient: address on file Patient Identification confirmed using: Name, : Yes Telehealth method: video Patient verbally consented to treatment: Yes Patient verbally consented to billing insurance company: Yes Patient informed of any privacy concerns related to visit: Yes Minutes spent on Phone/Video with Pt.: 15 Assessment & Plan Assessment & Plan (1) Elevated PSA: Code(s): R97.20 - Elevated prostate specific antigen [PSA] Category: Medical (2) Nephrolithiasis: Code(s): N20.0 - Calculus of kidney Category: Medical Plan Twelve month follow-up PSA office Orders: Orders Prostate Specific Antigen 12 Months R97.20 - Elevated prostate specific antigen [PSA] Patient Instructions: This note is constructed using voice recognition software. While every effort has been made to ensure accuracy manager group home errors may have been included. Imaging studies, laboratory and physical exam results were discussed and reviewed in detail. No major barriers to patient understanding were identified. An opportunity to ask questions regarding the treatment plan was provided. All questions were answered. The patient expressed understanding and agreement with the above treatment plan. The patient is aware they should contact our office by phone for worsening of their current condition or the appearance of new urologic symptoms. Compliance is encouraged with any medications and followup testing that is ordered. It is a privilege to participate in the urologic care of your patient. If you have any questions or concerns regarding treatment for the above conditions, or other urologic issues, please do not hesitate to contact me. The office telephone contact is [phone]. Sincerely, Dr Alex Porter MD, [facility] - Urology Compassionate Specialist Care for the Genitourinary System Coding Level of Care Code Tele Est Pt Level 3 (03296) Diagnoses Elevated PSA R97.20 Nephrolithiasis N20.0
== END 2025-01-18 16:07 | disposition home or self-care (01) ==
LOC: HO.HUSH 13:57
PROVIDERS: PCP Physician Assistant; Visit Provider Urology
DX: R97.20 Elevated prostate specific antigen [PSA] (principal); N20.0 Calculus of kidney
CPT/HCPCS: 99213

== ENCOUNTER 2025-02-23 08:29 | Outpatient (AMB) | payer OTHER, SELFPAY ==
[2025-02-23 08:32] VITALS: BP 110/70; PULSE 67; RESP 18; TEMP 36.2; O2SAT 96; BMI 22.9
--- NOTE | 2025-02-23 08:32 | A.OFFPC_ITS ---
Vital Signs 02/23/25 08:32 Height 5 ft 5 in Weight 137 lb 6 oz BMI 22.9 BP 110/70 Blood Pressure Location Lt brachial Position Sitting Respiration 18 Pulse 67 Pulse Source Pulse Oximeter Temp 97.1 F Temp Source Temporal Artery Scan Pulse Oximetry (%) 96 Oxygen Delivery Method Room Air Intake Visit Reasons: Annual Exam Neonatal Surgeon Required: No Accompanied by: Self / Same As Patient Allergies No Known Allergies Allergy (Verified 02/23/25 09:00) Medication List - Last Reconciled 02/23/25 by Osorio Grullon PA-C acetaminophen (Tylenol Extra Strength) 500 mg PO Q6H PRN citalopram 20 mg PO DAILY Tobacco use date assessed: 02/23/25 Dental Screening Dental Screen Date: 02/23/25 Did you have a dental visit in the last 12 months?: No Did you have a dental problem in the last 6 months where you did not have access to dental care?: No Was dental information given to patient?: No HPI Annual Exam HPI Details Patient is a 54 year old male here today here today for annual physical.?Patient has a past medical history significant for depression, nephrolithiasis? Chronic neck pain Concerns--> Chronic back pain is reported, attributed to aging, and he experiences fatigue and low energy, managed by daytime naps. 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 ?.. ?Depession/ anxiety: Is followed by a? therapist psychiatrist ( Aylin Tamez ) continues on SSRI therapy with good effect on his depression. His Celexa was recently increased to 20 mg ?.. ?Vaccine: UTD with? Tdap. UTD with COVID vac, he will consider getting flu vac and shingles vaccine. . Colorectal cancer screening: Colonoscopy done in 2021, poly found repeat 5 years. [facility] Medical History Tubular adenoma COVID-19 vaccine series completed Family history of adverse effect to anesthesia Family history of renal stone History of kidney stones Surgical History Hx of colonoscopy Hx of hand surgery Hx of cystoscopy Family History Mother CVA (cerebral vascular accident) Substance use disorder Father CVA (cerebral vascular accident), Onset Age: 60 Sister Diabetes Social History Housing: House Alcohol intake: former Year quit: 2018 Patient Tobacco Use Status: Former Tobacco user Tobacco use type: Cigarette e-Cigarette/Vaping Use: Never Used Second Hand Smoke Exposure: No Substance Use Type: Marijuana service: No Current occupational status: employed Current occupation: [employer] Cognitive needs: No Hearing needs: No Vision needs: No Questionnaire PHQ-9 Over the last 2 weeks, how often have you been bothered by any of the following problems? 1. Little interest or pleasure in doing things: nearly every day 2. Feeling down, depressed, or hopeless: nearly every day 3. Trouble falling or staying asleep, or sleeping too much: nearly every day 4. Feeling tired or having little energy: nearly every day 5. Poor appetite or overeating: nearly every day 6. Feeling bad about yourself - or that you are a failure or have let yourself or your family down: nearly every day 7. Trouble concentrating on things, such as reading the newspaper or watching television: nearly every day 8. Moving or speaking so slowly that other people could have noticed. Or the opposite - being so fidgety or restless that you have been moving around a lot more than usual: nearly every day 9. Thoughts that you would be better off or of hurting yourself in some way: nearly every day Total score: 27 Depression Screening Interpretation: Positive Depression Screening Follow-up: Existing condition and In treatment Depression Screening Done: Yes 13301 - PHQ-9 Billing: Yes Source: Developed by Drs. Leonid Schwab, Lillian Rodas, Aries Atkinson and colleagues, with an educational eber from [employer]. Thrive Questionnaire Date Thrive assessed: 02/23/25 I am a: Patient What is your living situation today?: I choose not to answer this question Within the past 12 months, did the food you bought not last and you didn't have the money to get more?: I choose not to answer this question Within the past 12 months, did you worry whether your food would run out before you got money to buy more?: I choose not to answer this question Do you have trouble paying for medicines?: I choose not to answer this question Do you have trouble getting transportation to medical appointments?: I choose not to answer this question Do you have trouble paying your heating and electricity bill?: I choose not to answer this question Do you have trouble taking care of your child, family member or friend?: I choose not to answer this question Do you have trouble with day-to-day activities such as bathing, preparing meals, shopping, managing finances, etc.?: I choose not to answer this question Are you currently unemployed and looking for a job?: I choose not to answer this question Are you interested in more education?: I choose not to answer this question Please select the resources that you would like help with: None Currently or been in a relationship where the following occur: I choose not to answer THRIVE Score: 0 AUDIT C Alcohol Use Questionnaire (AUDIT-C) 1. How often do you have a drink containing alcohol?: Never Total Score: 0 SANDRA-7 AMB Questionnaire SANDRA-7 Date SANDRA - 7 assessed: 02/23/25 Feeling nervous, anxious, or on edge: 3 = Nearly every day Not being able to stop or control worryin = Nearly every day Worrying too much about different things: 3 = Nearly every day Trouble relaxin = Nearly every day Being so restless that it is hard to sit still: 3 = Nearly every day Becoming easily annoyed or irritable: 3 = Nearly every day Feeling afraid as if something awful might happen: 3 = Nearly every day Total SANDRA-7 score (0-4 normal; 5-9 mild; 10-14 moderate; 15-21 severe): 21 Source: Developed by Drs. Leonid Schwab, Lillian Rodas, Aries Atkinson and colleagues, with an educational eber from [employer]. SANDRA-7 Assessment Billing SANDRA-7 Assessment Tool: SANDRA-7 Assessment 37072 Review of Systems Const Denies body aches, Denies chills, Denies excessive sweating, Denies fatigue, Denies fever(s) and Denies headache(s) Eyes Denies blurry vision ENT Denies dysphagia, Denies vertigo, Denies dizziness, Denies headache(s), Denies hearing loss and Denies tinnitus Card Denies chest pain, Denies chest pain with activity, Denies syncope, Denies irregular heart rhythm and Denies dyspnea Resp Denies chest congestion, Denies cough, Denies hemoptysis, Denies dyspnea and Denies wheezing GI Denies abdominal pain, Denies melena, Denies hematochezia, Denies coffee ground emesis, Denies dysphagia, Denies diarrhea, Denies nausea and Denies vomiting Denies difficulty urinating, Denies dysuria, Denies urinary frequency, Denies urinary hesitancy and Denies urinary urgency Musc Denies arthralgias, Denies limited range of motion, Denies muscle cramps and Denies muscle weakness Skin/Breast Denies rash and Denies skin ulcer Neuro Denies Abnormal speech present, Denies confusion, Denies vertigo, Denies dizziness, Denies syncope, Denies headache(s), Denies memory loss and Denies seizure-like activity Psych Denies anxiety, Denies confusion, Denies depression, Denies memory loss, Denies panic attacks and Denies paranoia Endo Denies excessive sweating, Denies fatigue, Denies flushing, Denies polydipsia and Denies polyuria Aller/Immun Denies wheezing Physical exam (Primary Care) Vital Signs: Last Vital Signs Temp 97.1 F 02/23/25 08:32 Pulse 67 02/23/25 08:32 Resp 18 02/23/25 08:32 BP 110/70 02/23/25 08:32 Pulse Ox 96 02/23/25 08:32 Oxygen Delivery Method Room Air 02/23/25 08:32 BMI result Body Mass Index 22.9 Tobacco/Smoking Status: Tobacco use Status Tobacco use date assessed 02/23/25 02/23/25 08:38 Patient Tobacco Use Status Former Tobacco user 02/23/25 08:38 Tobacco use type Cigarette 02/23/25 08:38 e-Cigarette/Vaping Use Never Used 02/23/25 08:38 PHQ-9: PHQ-9 Score PHQ-9: Total score 27 02/23/25 08:38 Depression Screening Interpretation: Positive Depression Screening Follow-up: Existing condition and In treatment Thrive Assessment: Date of Thrive Assessment Date Thrive assessed 02/23/25 02/23/25 08:38 Currently or been in a relationship where the following occur: I choose not to answer Const General: cooperative, comfortable, no acute distress, alert and awake; No confusion Orientation/consciousness: oriented to person, oriented to place, patient oriented x3 and No confusion HENMT Head: Yes normocephalic Ears: external ears normal and TM's normal bilaterally Face and sinus: No sinus tenderness Mouth: Normal oral and palatal mucosa present and tongue normal Teeth and gingiva: dentition normal and gingiva normal Throat: Yes posterior oropharynx normal, Yes tonsils normal and Yes uvula midline Eyes Conjunctivae: conjunctivae normal Sclerae: sclerae normal Pupils: Equal, round and reactive pupils present EOM: EOMs intact bilaterally Direct Ophthalmoscopy: No no photophobia Neck Neck: Yes no lymphadenopathy, No tender and Yes no JVD Thyroid: Thyroid normal Carotids: no bruits Chest Chest palpation & inspection: no tenderness Resp Effort & Inspection: normal respiratory effort, no audible wheezes, not labored and no stridor Auscultation: no crackles, no rales, no rhonchi and no wheezes Cardio Jugular venous distension: no JVD Rate: regular rate, not bradycardic and not tachycardic Rhythm: regular rhythm Bruits: no carotid bruits Peripheral pulses: Peripheral pulses 2+ throughout GI Inspection: Yes normal to inspection, No abdominal wall ecchymosis and No visible herniation Palpation (GI): Soft to palpation, nontender, no guarding, not rigid and No hepatosplenomegaly present Auscultation: normoactive bowel sounds General: Yes no CVA tenderness Back/Spine/Pelvis Back: no CVA tenderness and No back tenderness Cervical Spine: cervical ROM normal Thoracic/Lumbar Spine: thoracic and lumbar spine normal to inspection, straight leg raise negative bilaterally, No thoraco-lumbar ROM limited and No lumbar spinal tenderness Skin Lesions: no lesions Rashes: no rashes Wounds: no wounds Neuro General: oriented to person, oriented to place, patient oriented x3, CN's II-XI intact bilaterally and No confusion Cranial nerves: Yes Equal, round and reactive pupils present and Yes Normal accommodation reflex present Cognition (Neuro): normal cognition Speech: No Abnormal speech present Gait exam (Neuro): Normal gait present Motor exam (neuro): 5/5 motor strength present throughout Extrem Right upper extremity: full ROM; no cyanosis Left upper extremity: full ROM; no cyanosis Right lower extremity: no edema Left lower extremity: no edema Psych Appearance: grossly normal Mental Status: mental status grossly normal Affect: normal affect Attitude: cooperative Thought process: Normal thought process present Coding Level of Care Code Elva Pt Prev Care 40-64y(73289) Diagnoses Annual physical exam Z00.00 MDD (major depressive disorder), recurrent episode, mild F33.0 SANDRA (generalized anxiety disorder) F41.1 Chronic fatigue R53.82 Borderline high cholesterol E78.9 Additional Codes PHQ-9 - 87509 - PHQ-9 Billing: Yes ([id number]) SANDRA-7 Assessment Billing - SANDRA-7 Assessment Tool: SANDRA-7 Assessment 45914 ([id number]) Assessment & Plan Assessment & Plan (1) Annual physical exam: Code(s): Z00.00 - Encounter for general adult medical examination without abnormal findings Category: Medical Plan: As per HPI (2) MDD (major depressive disorder), recurrent episode, mild: Code(s): F33.0 - Major depressive disorder, recurrent, mild Category: Medical Plan: Patient's PHQ-9 score positive for depression which has been existing condition for him. He continues on citalopram 20 mg and follows a mental health therapist and a psychiatrist whom manage his mental health medications. (3) SANDRA (generalized anxiety disorder): Code(s): F41.1 - Generalized anxiety disorder Category: Medical Plan: Patient's SANDRA-7 score positive for anxiety which has been existing condition for him. Again continues on SSRI therapy. (4) Chronic fatigue: Code(s): R53.82 - Chronic fatigue, unspecified Category: Medical Plan: Fatigue will be evaluated with lab tests to rule out underlying conditions, and the patient is encouraged to maintain a balanced diet and regular sleep schedule. (5) Borderline high cholesterol: Code(s): E78.9 - Disorder of lipoprotein metabolism, unspecified Category: Medical Plan: Patient has a history of borderline high cholesterol, will continue to follow lipid panel to ensure stable. Patient continues to work on lifestyle and dietary modifications. Goal LDL to remain below 130 Orders: Orders Comprehensive Mazon. Panel Fast Today Z13.1 - Encounter for screening for diabetes mellitus Vitamin D 25-OH Total Today R53.82 - Chronic fatigue, unspecified Vitamin B12 and Folate Today E53.8 - Deficiency of other specified B group vitamins, R53.82 - Chronic fatigue, unspecified Lipid Panel Today E78.9 - Disorder of lipoprotein metabolism, unspecified Complete Blood Count no Diff Today Z13.1 - Encounter for screening for diabetes mellitus
== END 2025-02-23 09:17 | disposition home or self-care (01) ==
LOC: HO.HMCH 08:30
PROVIDERS: PCP Physician Assistant; Visit Provider Physician Assistant
DX: Z00.00 Encounter for general adult medical examination without abnormal findings (principal); F33.0 Major depressive disorder, recurrent, mild; F41.1 Generalized anxiety disorder; R53.82 Chronic fatigue, unspecified; E78.9 Disorder of lipoprotein metabolism, unspecified

== ENCOUNTER → 2025-02-23 08:29 | Outpatient (BNVA) | payer OTHER, SELFPAY | PROVIDERS: PCP Physician Assistant; Visit Provider Physician Assistant | DX: Z00.00 Encounter for general adult medical examination without abnormal findings (principal); F33.0 Major depressive disorder, recurrent, mild; F41.1 Generalized anxiety disorder; R53.82 Chronic fatigue, unspecified; E78.9 Disorder of lipoprotein metabolism, unspecified; F41.8 Other specified anxiety disorders; Z79.899 Other long term (current) drug therapy; Z13.31 Encounter for screening for depression; Z13.39 Encounter for screening examination for other mental health and behavioral disorders | CPT/HCPCS: 96127 ==